=== PATIENT | male | born 1950 | race Caucasian/White ===

== ENCOUNTER → 2024-01-21 | Outpatient (CLI) | payer OTHER ==
--- NOTE | 2024-01-24 12:27 | PE ---
EXAMINATION TYPE: PET CT fusion skull to thigh DATE OF EXAM: 01/21/2024 CLINICAL INDICATION:Male, 73 years old with history of [id number]; TECHNIQUE: Following the intravenous administration of 12.8 mCi of F-18 FDG, whole body images are performed from the skull base to the midthigh. Images are reviewed on the computer in the coronal, a xial, and sagittal planes. Reconstructed rotating images are created on independent workstation and reviewed on the computer. A non-contrast CT is performed in conjunction with the PET scan. Glucose level 83 mg/dL CT DLP: 736 mGycm, Automated exposure control for dose reduction was used. COMPARISON: CT None, PET/CT None, FINDINGS: Mediastinal SUV mean is 2.7. Hepatic parenchyma SUV mean is 2.2. SKULL BASE AND NECK: * No suspicious radiotracer activity. * Physiologic uptake within the palatine tonsils. CHEST, MEDIASTINUM, AND HILAR REGION: * Right pulmonary hilum lymph node max SUV 4.8. * Asymmetric uptake within the left breast is retroareolar region in the area of gynecomastia SUV 4. 1. ABDOMEN AND PELVIS: No suspicious radiotracer activity. MUSCULOSKELETAL STRUCTURES: * No suspicious radiotracer activity. * Degeneration changes within the cervical spine lateral facets max SUV 6.0 C6-C7 on the left. OTHER CT: Bilaterally aphakia. Atherosclerosis of the carotid bifurcations and coronary arteries. Rig ht chest wall Hoegke-y-Epcn tip terminating in the right atrium. Atrophic kidneys right greater left. Scattered cysts throughout the liver. Colonic diverticulosis. Left inguinal hernia containing loop o f sigmoid colon. No evidence for circulation. Right renal cyst. Small bilateral hydroceles. IMPRESSION: * Right pulmonary hilum lymph node with mild uptake which may be reactive. No additional suspicious uptake definitively visualized to suggest active lymphoma. No priors are available for comparison. * Indeterminate Asymmetric uptake within the left breast correlate with mammography/ultrasound. This is predominantly in the retroareolar region where there is gynecomastia changes.
== END | disposition home or self-care (01) ==
LOC: RADPETMAIN 10:44
PROVIDERS: ATTEND Internal Medicine
DX: C82.98 Follicular lymphoma, unspecified, lymph nodes of multiple sites (principal); N62 Hypertrophy of breast
CPT/HCPCS: 78815; A9552

== ENCOUNTER → 2024-08-08 | Day surgery (SDC) | payer OTHER ==
[2024-08-08] MEDS: IV FLUID CONTINUATION 1,000 ML IV ONE (11:45)
[2024-08-08 12:16] VITALS: RESP 16; TEMP 97.1
[2024-08-08] MEDS: LIDOCAINE 1% INJ 10MG/ML (20 ML MDV) SQ ONE (12:30)
[2024-08-08 12:33] LABS: African American GFR (CKD) 6 (>60 ml/min/1.73 sqM); Anion Gap 17 mmol/L; Blood Urea Nitrogen 77 mg/dL (9-20); Calcium 9.1 mg/dL (8.4-10.2); Carbon Dioxide 24 mmol/L (22-30); Chloride 95 mmol/L (98-107); Glucose 86 mg/dL (74-99); Non-African American GFR(CKD) 6 (>60 ml/min/1.73 sqM); Sodium 136 mmol/L (137-145)
[2024-08-08] MEDS: MIDAZOLAM 2 MG/2 ML VIAL IVP ONE (12:38)
[2024-08-08] MEDS: HEPARIN SODIUM 1,000 UN/ML (10ML VL) IVP ONE (12:38)
[2024-08-08] MEDS: NITROGLYCERIN 1000MCG/10ML SYRINGE INTRAARTER ONE (12:39)
[2024-08-08] MEDS: VERAPAMIL SYRINGE (5 MG/10 ML) INTRAARTER ONE (12:39)
[2024-08-08 12:43] LABS: Anisocytosis Slight; Basophils % (A) 1 %; Eosinophils # (A) 0.2 k/uL (0-0.7); Eosinophils % (A) 3 %; HCT 46.1 % (39.0-53.0); HGB 15.2 gm/dL (13.0-17.5); Lymphocytes # (A) 1.2 k/uL (1.0-4.8); Lymphocytes % (A) 20 %; MCH 31.7 pg (25.0-35.0); MCHC 32.9 g/dL (31.0-37.0); MCV 96.2 fL (80.0-100.0); Mean Platelet Volume 8.8; Monocytes # (A) 0.5 k/uL (0-1.0); Monocytes % (A) 9 %; Neutrophils # (A) 3.7 k/uL (1.3-7.7); Neutrophils % (A) 63 %; Platelet Count 177 k/uL (150-450); RBC 4.79 m/uL (4.30-5.90); RDW 16.1 % (11.5-15.5); WBC 5.9 k/uL (3.8-10.6)
[2024-08-08] MEDS: IOPAMIDOL-370 100ML BTL INJ ONE (13:20)
--- NOTE | 2024-08-08 13:31 | P.OP ---
Date of Procedure: 08/08/24 Preoperative Diagnosis: End-stage renal disease, malfunctioning right upper extremity arteriovenous fistula Postoperative Diagnosis: Same Procedure(s) Performed: Ultrasound-guided right radial artery access Ultrasound-guided right brachial vein access Right upper extremity fistulogram Coil embolization of the right medial brachial vein with Terumo coils x 4 Conscious sedation x 51 mins Anesthesia: local Surgeon: Thomas Hernandez Estimated Blood Loss (ml): 5 Pathology: none sent Condition: stable Disposition: PACU Indications for Procedure: 73-year-old gentleman with history of end-stage renal disease on hemodialysis via right-sided chest catheter who underwent previous percutaneous arteriovenous fistula creation radial radial access several months ago and the fistula has failed to mature at the cephalic and basilic veins due to stealing within the deep system. He presents today to coil embolize the medial brachial vein to see if this will help improve blood flow through the cephalic and basilic veins and mature his fistula. Description of Procedure: After written and informed consent was obtained for the patient and all risk, benefits and complications were described the patient was brought to the [employer] [facility] and laid in the supine position with his right arm outstretched on an armboard. The area of the right arm was prepped and draped in usual sterile fashion. Timeout was performed normal fashion. Utilizing ultrasound the right radial artery was visualized and shown to be patent. It was then accessed under direct visualization in a retrograde fashion and a 5 Palauan sheath was placed in normal fashion. Fistulogram was then obtained demonstrating good brisk flow through his percutaneous fistula with out any evidence of stenosis at the cephalic vein or the shake backboard notcher. The medial brachial vein was large and therefore the brachial vein was then accessed in a retrograde fashion at the medial aspect of the arm under ultrasound guidance in normal fashion. A 5 Palauan sheath was then placed and a wire was then directed into the medial brachial vein. Angled glide catheter was then placed and utilizing Terumo coils 4 coils were then placed and direct visualization of fluoroscopy. 8 x 24 Azur CX x 2 followed by 4 x 10 and 4 x 15 cm Ware coils. Final angiogram was obtained demonstrating embolization of the medial brachial vein with brisk flow to the basilic and cephalic veins and good flow through the fistula. All guidewires and catheters were then removed. The sheath was removed at the brachial vein and hemostasis was assured with pressure. The arterial access was removed and a TR band was placed for hemostasis. The patient tolerated procedure well and had a palpable thrill at the fistula site.
[2024-08-08 17:49] VITALS: BP 129/64; PULSE 64
--- NOTE | 2024-08-12 11:17 | IR ---
EXAMINATION TYPE: IR fistula/abscess/sinus tract DATE OF EXAM: 08/08/2024 FLUOROSCOPY coil placement in right arm fistula.7.3min fluoro, 17.5Gycm2 609 images are submitted. [facility], , 08/11/2024 9:00 AM
== END ==
LOC: CATHCVL 11:03
PROVIDERS: ATTEND Surgery
DX: I77.0 Arteriovenous fistula, acquired (principal); N18.6 End stage renal disease; Z88.2 Allergy status to sulfonamides; Z88.1 Allergy status to other antibiotic agents; Z91.040 Latex allergy status
CPT/HCPCS: 76937; 36901; 37241; 80048; 85025; C1894 ×3; C1769 ×4; J2250; J2003; J1644; Q9967; J2305

== ENCOUNTER 2024-12-12 16:14 | Emergency (ER) | payer OTHER ==
[2024-12-12 16:32] VITALS: TEMP 97.8
--- NOTE | 2024-12-12 17:30 | ED ---
General Adult HPI - General Chief complaint: Recheck/Abnormal Lab/Rx Stated complaint: Port Issues Time Seen by Provider: 12/12/24 16:58 Source: patient Mode of arrival: ambulatory Limitations: no limitations - History of Present Illness Initial comments: Carloz is a 74-year-old gentleman with end-stage renal disease on hemodialysis Thursday. Patient has historically received his hemodialysis through a cath in the right chest, he had a fistula surgery about a year ago the fistula failed to mature due to deep steal, patient underwent coiling in July and the graft has had 5 more months to mature. He had his first vascular access for dialysis on Thursday. It was noted that it infiltrated on Thursday. Today they again attempted hemodialysis through the fistula they were successful for about 2 hours and again it infiltrated. They then attempted to access his cath in his right chest and could not gain access through that. He w as given Cathflo but they were still unsuccessful in completing dialysis at which time he was advised to come here. Patient does note that his weight was up today and they did not complete dialysis but he is feeling well, no shortness of breath or chest pain. - Related Data Home Medications Medication Instructions Recorded Confirmed B Complex W-C No.20/Folic Acid 1 mg PO DAILY 08/05/24 08/08/24 [Renal Caps Softgel] Calcium Carbonate [Calcium] 1 tab PO PC-TID 08/05/24 08/08/24 Cholecalciferol [Vitamin D3 (10 10 mcg PO BID 08/05/24 08/08/24 Mcg = 400 Iu)] Furosemide [Lasix] 40 mg PO DAILY 08/05/24 08/08/24 Lovastatin [Mevacor] 20 mg PO HS 08/05/24 08/08/24 Memantine [Namenda] 5 mg PO DAILY 08/05/24 08/08/24 Midodrine [ProAmatine] 5 mg PO MOWEFR 08/05/24 08/08/24 Thiamine [Vitamin B-1] 100 mg PO DAILY 08/05/24 08/08/24 traMADol HCL 100 mg PO TID PRN 08/05/24 08/08/24 amLODIPine [Norvasc] 0 mg PO DAILY 08/08/24 08/08/24 Allergies Allergy/AdvReac Type Severity Reaction Status Date / Time latex Allergy Rash/Hives Verified 12/12/24 16:32 levofloxacin Allergy Rash/Hives Verified 12/12/24 16:32 Sulfa (Sulfonamide Allergy Rash/Hives Verified 12/12/24 16:32 Antibiotics) aspirin AdvReac renal Verified 12/12/24 16:32 failure NSAIDS (Non-Steroidal AdvReac renal Verified 12/12/24 16:32 Anti-Inflamma failure Review of Systems ROS Statement: Those systems with pertinent positive or pertinent negative responses have been documented in the HPI. ROS Other: All systems not noted in ROS Statement are negative. Past Medical History Past Medical History: Dialysis, Hyperlipidemia, Hypertension, Memory Impairment, Renal Disease Additional Past Medical History / Comment(s): bleeding ulcer , ESRD - hemodialysis 3x/wk, pituitary gland tumor - removed 2015, Non hodgkin's lymphoma from [facility] [place] History of Any Multi-Drug Resistant Organisms: None Reported Additional Past Surgical History / Comment(s): pituitary gland tumor removal 2015, partial Lt. knee replacement, Rt. brachial fistula insertion Past Anesthesia/Blood Transfusion Reactions: No Reported Reaction Past Psychological History: No Psychological Hx Reported Smoking Status: Former smoker - Past Family History Father Family Medical History: Renal Disease General Exam - General Exam Comments Initial Comments: Physical Exam GENERAL: Chronically ill-appearing, no acute distress HENT: Normocephalic, Atraumatic. EYES: PERRL, EOMI PULMONARY: Unlabored respirations. CARDIOVASCULAR: Fistula in right arm, palpable thrill, slight oozing of blood from access site Cath in the right upper chest ABDOMEN: Non-distended SKIN: No rashes or bruising : Deferred NEUROLOGIC: Alert and oriented Normal speech MUSCULOSKELETAL: Moving all extremities with no apparent injury PSYCHIATRIC: No SI/HI Limitations: no limitations Course Vital Signs 12/12/24 12/12/24 16:26 19:09 Temperature 97.8 F Pulse Rate 81 85 Respiratory 17 18 Rate Blood Pressure 157/71 142/73 O2 Sat by Pulse 100 96 Oximetry Medical Decision Making - Medical Decision Making Was pt. sent in by a medical professional or institution (, PA, EVS ATTENDANT, urgent care, hospital, or long-term...) When possible be specific @ -Yes, sent from dialysis center Did you speak to anyone other than the patient for history (EMS, parent, family, police, friend...)? What history was obtained from this source @ -Yes, Did you review nursing and triage notes (agree or disagree)? Why? @ -I reviewed and agree with nursing and triage notes Were old charts reviewed (outside hosp., previous admission, EMS record, old EKG, old radiological studies, urgent care reports/EKG's, long-term records)? Report findings @ -Previous vascular op notes were reviewed Differential Diagnosis (chest pain, altered mental status, abdominal pain women, abdominal pain men, vaginal bleeding, weakness, fever, dyspnea, syncope, headache, dizziness, GI bleed, back pain, seizure, CVA, palpatations, mental health)? @ -Not applicable EKG interpreted by me (3pts min.). @ -As above X-rays interpreted by me (1pt min.). @ -None done CT interpreted by me (1pt min.). @ -None done U/S interpreted by me (1pt. min.). @ -None done What testing was considered but not performed or refused? (CT, X-rays, U/S, labs)? Why? @ -None What meds were considered but not given or refused? Why? @ -None Did you discuss the management of the patient with other professionals (professionals i.e. Dr., PA, EVS ATTENDANT, lab, RT, psych nurse, social security benefits interviewer, infection control preventionist, teacher, patient safety officer, shoe caser)? Give summary @ -Discussed with vascular surgeon Dr. Fernández Was smoking cessation discussed for >3mins.? @ -No Was critical care preformed (if so, how long)? @ -No Were there social determinants of health that impacted care today? How? (Homelessness, low income, unemployed, alcoholism, drug addiction, transportation, low edu. Level, literacy, decrease access to med. care, shelter, rehab)? @ -No Was there de-escalation of care discussed even if they declined (Discuss DNR or withdrawal of care, Hospice)? DNR status @ -No What co-morbidities impacted this encounter? (DM, HTN, Smoking, COPD, CAD, Cancer, CVA, ARF, Chemo, Hep., AIDS, mental health diagnosis, sleep apnea, morbid obesity)? @ -End-stage renal disease on dialysis Was patient admitted / discharged? Hospital course, mention meds given and route, prescriptions, significant lab abnormalities, going to OR and other pertinent info. @ -Discharged The patient was seen and evaluated, history is obtained from the patient and note from dialysis center. Patient's right AV fistula infiltrated 2 sessions in a row and today they were unable to perform dialysis through his cath despite using Cathflo. I discussed this with the vascular surgeon on-call who recommended giving Cathflo again. We gave a second dose of Cathflo and had easy access through the cath afterwards. This was discussed with the patient's guest services ambassador who stated that now that we have good flow through the cath patient can be discharged home with a plan for urgent 2-hour dialysis tomorrow and return to normal schedule on Thursday. In addition patient will follow-up with vascular surgeon for reevaluation of his fistula. Undiagnosed new problem with uncertain prognosis? @ -No Drug Therapy requiring intensive monitoring for toxicity (Heparin, Nitro, Insulin, Cardizem)? @ -No Were any procedures done? @ -No Diagnosis/symptom? @ -End-stage renal disease patient on with vascular access problem Acute, or Chronic, or Acute on Chronic? @ -Default Uncomplicated (without systemic symptoms) or Complicated (systemic symptoms)? @ -Default Side effects of treatment? @ -No Exacerbation, Progression, or Severe Exacerbation? @ -No Poses a threat to life or bodily function? How? (Chest pain, USA, CT, pneumonia, PE, COPD, DKA, ARF, appy, cholecystitis, CVA, Diverticulitis, Homicidal, Anita cidal, threat to staff... and all critical care pts) @ -No - Lab Data Result diagrams: 12/12/24 17:34 12/12/24 17:34 Lab Results 12/12/24 12/12/24 Range/Units 17:34 17:34 WBC 9.19 (4.50-10.00) 10*3/uL RBC 3.53 L (4.40-5.60) 10*6/uL Hgb 11.0 L (13.0-17.0) g/dL Hct 32.3 L (39.6-50.0) % MCV 91.5 (80.0-97.0) fL MCH 31.2 (27.0-32.0) pg MCHC 34.1 (32.0-37.0) g/dL Plt Count 252 (140-440) 10*3/uL MPV 10.0 (9.5-12.2) fL Immature Gran % (Auto) 0.3 % Neutrophils % 80.1 % Lymphocytes % 6.0 % Monocytes % 11.9 % Eosinophils % 1.3 % Basophils % 0.4 % Immature Gran # 0.03 (0.00-0.04) 10*3/uL Neutrophils # 7.36 (1.80-7.70) 10*3/uL Lymphocytes # 0.55 L (0.90-5.00) 10*3/uL Monocytes # 1.09 H (0.20-1.00) 10*3/uL Eosinophils # 0.12 (0.04-0.35) 10*3/uL Basophils # 0.04 (0.00-0.10) 10*3/uL Sodium 138 (137-145) mmol/L Potassium 5.1 (3.5-5.1) mmol/L Chloride 98 (98-107) mmol/L Carbon Dioxide 26 (22-30) mmol/L Anion Gap 14 mmol/L BUN 106 H* (9-20) mg/dL Creatinine 8.36 H* (0.66-1.25) mg/dL Est GFR (CKD-EPI)AfAm 7 (>60 ml/min/1.73 sqM) Est GFR (CKD-EPI)NonAf 6 (>60 ml/min/1.73 sqM) Glucose 107 H (74-99) mg/dL Calcium 8.5 (8.4-10.2) mg/dL Phosphorus 6.4 H (2.5-4.5) mg/dL Total Bilirubin 0.7 (0.2-1.3) mg/dL AST 44 (17-59) U/L ALT 59 H (4-49) U/L Alkaline Phosphatase 177 H (38-126) U/L Total Protein 7.1 (6.3-8.2) g/dL Albumin 3.5 (3.5-5.0) g/dL Disposition Clinical Impression: Dialysis catheter clot or failure Disposition: HOME SELF-CARE Condition: Stable Additional Instructions: Dr. Prajapati will be reaching out to see if they can get you scheduled for an emergent 2-hour dialysis session tomorrow if not you will resume dialysis on Thursday Is patient prescribed a controlled substance at d/c from ED?: No Referrals: Keith Kowalski DO [Primary Care Provider] - 1-2 days
[2024-12-12 17:40] LABS: Basophils # (A) 0.04 10*3/uL (0.00-0.10); Basophils % (A) 0.4 %; Eosinophils # (A) 0.12 10*3/uL (0.04-0.35); Eosinophils % (A) 1.3 %; HCT 32.3 % (39.6-50.0); Lymphocytes # (A) 0.55 10*3/uL (0.90-5.00); MCH 31.2 pg (27.0-32.0); MCHC 34.1 g/dL (32.0-37.0); MCV 91.5 fL (80.0-97.0); Monocytes # (A) 1.09 10*3/uL (0.20-1.00); Monocytes % (A) 11.9 %; Neutrophils # (A) 7.36 10*3/uL (1.80-7.70); Neutrophils % (A) 80.1 %; Platelet Count 252 10*3/uL (140-440); RBC 3.53 10*6/uL (4.40-5.60); RDW 16.8 % (11.5-14.5); WBC 9.19 10*3/uL (4.50-10.00)
[2024-12-12 17:52] LABS: ALT 59 U/L (4-49); AST 44 U/L (17-59); African American GFR (CKD) 7 (>60 ml/min/1.73 sqM); Albumin 3.5 g/dL (3.5-5.0); Alkaline Phosphatase 177 U/L (38-126); Anion Gap 14 mmol/L; Calcium 8.5 mg/dL (8.4-10.2); Carbon Dioxide 26 mmol/L (22-30); Chloride 98 mmol/L (98-107); Glucose 107 mg/dL (74-99); Non-African American GFR(CKD) 6 (>60 ml/min/1.73 sqM); Phosphorus 6.4 mg/dL (2.5-4.5); Potassium 5.1 mmol/L (3.5-5.1); Sodium 138 mmol/L (137-145); Total Bilirubin 0.7 mg/dL (0.2-1.3); Total Protein 7.1 g/dL (6.3-8.2)
[2024-12-12] MEDS: ALTEPLASE 2 MG VIAL (CATHFLO) IV STA (18:01)
[2024-12-12 18:03] LABS: Blood Urea Nitrogen 106 mg/dL (9-20)
[2024-12-12 19:10] VITALS: BP 142/73; PULSE 85; RESP 18
== END 2024-12-12 19:11 | disposition home or self-care (01) ==
LOC: EC 16:14
DX: T82.41XA Breakdown (mechanical) of vascular dialysis catheter, initial encounter (principal); N18.6 End stage renal disease; Z99.2 Dependence on renal dialysis; Z87.891 Personal history of nicotine dependence; Z88.2 Allergy status to sulfonamides; Z88.1 Allergy status to other antibiotic agents; Z88.6 Allergy status to analgesic agent; Z91.040 Latex allergy status
CPT/HCPCS: 36415; 80053; 84100; 85025; 99283; 37195; J2997

== ENCOUNTER → 2025-02-02 | Outpatient (CLI) | payer OTHER ==
--- NOTE | 2025-02-02 10:32 | US ---
EXAMINATION TYPE: US arterial LE single level DATE OF EXAM: 02/02/2025 9:21 AM COMPARISONS: None. CLINICAL INDICATION: Male, 74 years old with history of M86.172 OTHER ACUTE OSTEOMYELITIS ,LEFT ANKLE AND; TECHNIQUE: Systolic pressures were taken of the upper and lower extremity arteries with ankle-brachia l indices and toe brachial indices calculated bilaterally. History of: Smoker: Previous Hypertension: Yes Diabetic: No Hyperlipidemia: Yes TIA/CVA: No Previous Vascular Surgery: Patient has hx of procedure on veins in legs CAD: No UT: No Vascular Ulcers: Patient has 2 wounds on left foot - lateral and bottom of foot Claudication: No FINDINGS: Doppler Waveforms: Right: Left: Pulse Volume Recording: Pressure Gradients: Brachial Artery systolic pressure: Right: Deferred due to fistula Left: 106 Posterior Tibial artery systolic pressure: Right: 108 Left: 115 Dorsalis Pedis artery systolic pressure: Right: 116 Left: 112 Toe artery systolic pressure: Right: 98 Left: Unable to access due to bandage Ankle-Brachial Indices: Right: 1.09 Left: 1.08 Toe Brachial Indices: Right: 0.92 Left: Unable to access due to bandage (Normal > 0.6; Mild 0.35 - 0.59, Moderate 0.12 - 0.34, Severe <0.12) IMPRESSION: 1. No suspicious stenosis based arterial ultrasound study. 2. Limitation of left lower extremity due to bandaging [facility], , 02/02/2025 10:29 AM
== END | disposition home or self-care (01) ==
LOC: RADUSWWP 08:40
PROVIDERS: ATTEND Internal Medicine Infectious Disease
DX: M86.172 Other acute osteomyelitis, left ankle and foot (principal); E78.5 Hyperlipidemia, unspecified; I10 Essential (primary) hypertension; Z87.891 Personal history of nicotine dependence
CPT/HCPCS: 93922

== ENCOUNTER 2025-02-04 11:45 | Inpatient (IN) | payer OTHER, MEDICARE ==
[2025-02-04] MEDS: SODIUM CHLORIDE 0.9% 1,000 ML IV STA (14:11)
[2025-02-04 14:19] LABS: Basophils # (A) 0.13 10*3/uL (0.00-0.10); Basophils % (A) 0.5 %; Eosinophils # (A) 0.06 10*3/uL (0.04-0.35); Eosinophils % (A) 0.2 %; HCT 35.7 % (39.6-50.0); HGB 12.1 g/dL (13.0-17.0); Immature Platelet Fraction 4.1 % (1.1-6.1); Lymphocytes # (A) 0.72 10*3/uL (0.90-5.00); Lymphocytes % (A) 2.6 %; MCH 32.0 pg (27.0-32.0); MCHC 33.9 g/dL (32.0-37.0); MCV 94.4 fL (80.0-97.0); Monocytes # (A) 1.94 10*3/uL (0.20-1.00); Monocytes % (A) 7.1 %; Neutrophils # (A) 24.15 10*3/uL (1.80-7.70); Neutrophils % (A) 88.6 %; RBC 3.78 10*6/uL (4.40-5.60); RDW 17.5 % (11.5-14.5); WBC 27.28 10*3/uL (4.50-10.00)
[2025-02-04 14:21] LABS: Platelet Count 155 10*3/uL (140-440)
[2025-02-04 14:27] LABS: ALT <6 U/L (4-49); AST 34 U/L (17-59); African American GFR (CKD) 11 (>60 ml/min/1.73 sqM); Albumin 2.8 g/dL (3.5-5.0); Alkaline Phosphatase 134 U/L (38-126); Anion Gap 12 mmol/L; Blood Urea Nitrogen 45 mg/dL (9-20); Calcium 8.2 mg/dL (8.4-10.2); Carbon Dioxide 25 mmol/L (22-30); Chloride 96 mmol/L (98-107); Glucose 92 mg/dL (74-99); Non-African American GFR(CKD) 9 (>60 ml/min/1.73 sqM); Potassium 3.4 mmol/L (3.5-5.1); Sodium 133 mmol/L (137-145); Total Protein 5.5 g/dL (6.3-8.2)
--- NOTE | 2025-02-04 15:39 | ED ---
General Adult HPI - General Chief complaint: Nausea/Vomiting/Diarrhea Stated complaint: diarrhea Time Seen by Provider: 02/04/25 12:05 Source: patient Mode of arrival: ambulatory Limitations: no limitations - History of Present Illness Initial comments: 74-year-old male with history of osteomyelitis on IV antibiotics who presents to the emergency department for diarrhea. Patient is a dialysis patient. He receives dialysis on Thursday, Thursday and Thursday. He states that at each dialysis appointment he has been getting an infusion of antibiotics for the infection in his foot. He follows with Dr. Cespedes. He states that he goes multiple times per hour and it is bright yellow in coloration. He has no abdominal pain. He did bring a stool sample to the hospital yesterday and was found that he is C. difficile positive. Patient was prescribed Flagyl 1 month ago however he states that the [facility] never delivered this to him. No vomiting. No other alleviating, precipitating or modifying factors - Related Data Home Medications Medication Instructions Recorded Confirmed B Complex W-C No.20/Folic Acid 1 cap PO DAILY 08/05/24 02/08/25 [Renal Caps Softgel] Cholecalciferol [Vitamin D3 (10 10 mcg PO BID 08/05/24 02/08/25 Mcg = 400 Iu)] Furosemide [Lasix] 80 mg PO DAILY 08/05/24 02/08/25 Lovastatin [Mevacor] 20 mg PO HS 08/05/24 02/08/25 traMADol HCL 100 mg PO BID 08/05/24 02/08/25 Memantine [Namenda] 5 mg PO BID 12/22/24 02/08/25 Midodrine HCl 10 mg PO MOWEFR 12/22/24 02/08/25 Sucroferric Oxyhydroxide [Velphoro] 500 mg PO TID-W/MEALS 12/22/24 02/08/25 amLODIPine [Norvasc] 10 mg PO DAILY 12/22/24 02/08/25 carvediloL [Coreg] 3.125 mg PO BID 12/22/24 02/08/25 Thiamine HCl [Vitamin B-1] 200 mg PO DAILY 02/04/25 02/08/25 Vancomycin Oral Solution 500 mg PO DIRECTED 02/08/25 02/08/25 [Vancomycin HCl Oral Soln] Previous Rx's Medication Instructions Recorded Calcium Acetate [PhosLo] 667 mg PO TID-W/MEALS #30 tab 12/28/24 Allergies Allergy/AdvReac Type Severity Reaction Status Date / Time latex Allergy Rash/Hives Verified 02/08/25 20:51 levofloxacin Allergy Rash/Hives Verified 02/08/25 20:51 Sulfa (Sulfonamide Allergy Rash/Hives Verified 02/08/25 20:51 Antibiotics) aspirin AdvReac renal Verified 02/08/25 20:51 failure NSAIDS (Non-Steroidal AdvReac renal Verified 02/08/25 20:51 Anti-Inflamma failure Review of Systems ROS Statement: Those systems with pertinent positive or pertinent negative responses have been documented in the HPI. ROS Other: All systems not noted in ROS Statement are negative. Past Medical History Past Medical History: Dialysis, Hyperlipidemia, Hypertension, Memory Impairment, Renal Disease Additional Past Medical History / Comment(s): bleeding ulcer , ESRD - hemodialysis 3x/wk, pituitary gland tumor - removed 2015, Non hodgkin's lymphoma from [employer] [place] History of Any Multi-Drug Resistant Organisms: None Reported Additional Past Surgical History / Comment(s): pituitary gland tumor removal 2015, partial Lt. knee replacement, Rt. brachial fistula insertion Past Anesthesia/Blood Transfusion Reactions: No Reported Reaction Past Psychological History: No Psychological Hx Reported Smoking Status: Former smoker Past Alcohol Use History: None Reported Past Drug Use History: None Reported - Past Family History Father Family Medical History: Renal Disease General Exam Limitations: no limitations General appearance: alert, in no apparent distress Head exam: Present: atraumatic, normocephalic, normal inspection Eye exam: Present: normal appearance, PERRL, EOMI. Absent: scleral icterus, conjunctival injection, periorbital swelling ENT exam: Present: normal exam, mucous membranes moist Neck exam: Present: normal inspection. Absent: tenderness, meningismus, lymphadenopathy Respiratory exam: Present: normal lung sounds bilaterally. Absent: respiratory distress, wheezes, rales, rhonchi, stridor Cardiovascular Exam: Present: regular rate, normal rhythm, normal heart sounds. Absent: systolic murmur, diastolic murmur, rubs, gallop, clicks GI/Abdominal exam: Present: soft, normal bowel sounds. Absent: distended, tenderness, guarding, rebound, rigid Extremities exam: Present: normal inspection, full ROM, normal capillary refill. Absent: tenderness, pedal edema, joint swelling, calf tenderness Back exam: Present: normal inspection Neurological exam: Present: alert, oriented X3, CN II-XII intact Psychiatric exam: Present: normal affect, normal mood Skin exam: Present: warm, dry, intact, normal color. Absent: rash Course Vital Signs 02/04/25 02/04/25 02/04/25 11:47 15:14 17:46 Temperature 97.7 F 97.9 F Pulse Rate 64 75 68 Respiratory 18 16 19 Rate Blood Pressure 92/44 96/62 94/60 O2 Sat by Pulse 94 L 95 96 Oximetry Medical Decision Making - Medical Decision Making Was pt. sent in by a medical professional or institution (, PA, RETREAD OPERATOR, urgent care, hospital, or [facility]...) When possible be specific @ -Patient was sent in by his primary care after he did have positive outpatient laboratory studies Did you speak to anyone other than the patient for history (EMS, parent, family, police, friend...)? What history was obtained from this source @ -Spoke with for history Did you review nursing and triage notes (agree or disagree)? Why? @ -I reviewed and agree with nursing and triage notes Were old charts reviewed (outside hosp., previous admission, EMS record, old EKG, old radiological studies, urgent care reports/EKG's, [facility] records)? Report findings @ -I reviewed patient's hospitalization from December 22. Patient was hospitalized for osteomyelitis and was on antibiotics. He was discharged home with Flagyl however [facility] Differential Diagnosis (chest pain, altered mental status, abdominal pain women, abdominal pain men, vaginal bleeding, weakness, fever, dyspnea, syncope, headache, dizziness, GI bleed, back pain, seizure, CVA, palpatations, mental health, musculoskeletal)? @Differential Abdominal Pain Men: Appendicitis, cholecystitis, diverticulosis, ischemic bowel, pancreatitis, hepatitis, UTI, gastroenteritis, AAA, incarcerated hernia, bowel obstruction, constipation, inflammatory bowel, hepatitis, peptic ulcer disease, splenic infarction, perforated viscus, testicular torsion, this is not meant to be an all-inclusive list EKG interpreted by me (3pts min.). @ -Not done X-rays interpreted by me (1pt min.). @ -Yes which does not demonstrate any acute process CT interpreted by me (1pt min.). @ -None done U/S interpreted by me (1pt. min.). @ -None done What testing was considered but not performed or refused? (CT, X-rays, U/S, labs)? Why? @ -None What meds were considered but not given or refused? Why? @ -None Did you discuss the management of the patient with other professionals (professionals i.e. Dr., PA, RETREAD OPERATOR, lab, RT, psych nurse, social services, sterilization specialist, teacher, financial services officer, test case developer)? Give summary @ -Spoke with Dr. Muller for admission Was smoking cessation discussed for >3mins.? @ -No Was critical care preformed (if so, how long)? @ -No Were there social determinants of health that impacted care today? How? (Ho melessness, low income, unemployed, alcoholism, drug addiction, transportation, low edu. Level, literacy, decrease access to med. care, half-way, rehab)? @ -No Was there de-escalation of care discussed even if they declined (Discuss DNR or withdrawal of care, Hospice)? DNR status @ -No What co-morbidities impacted this encounter? (DM, HTN, Smoking, COPD, CAD, Cancer, CVA, ARF, Chemo, Hep., AIDS, mental health diagnosis, sleep apnea, morbid obesity)? @ -Osteomyelitis Was patient admitted / discharged? Hospital course, mention meds given and route, prescriptions, significant lab abnormalities, going to OR and other pertinent info. @ -On arrival patient seen and evaluated in room 22. Thorough history and physical exam was performed. Patient is C. difficile positive on his outpatient labs. I did initiate oral Vanco. He does arrive with hypotension and therefore I did conduct laboratory studies. Patient does have leukocytosis. I did recommend admission because of the hypotension and leukocytosis. Spoke with Dr. Muller for admission Undiagnosed new problem with uncertain prognosis? @ -No Drug Therapy requiring intensive monitoring for toxicity (Heparin, Nitro, Insulin, Cardizem)? @ -No Were any procedures done? @ -No Diagnosis/symptom? @ -Acute abdominal pain, acute diarrhea, C. difficile, hypotension, leukocytosis Acute, or Chronic, or Acute on Chronic? @ -Acute Uncomplicated (without systemic symptoms) or Complicated (systemic symptoms)? @ -Complicated Side effects of treatment? @ -No Exacerbation, Progression, or Severe Exacerbation? @ -No Poses a threat to life or bodily function? How? (Chest pain, USA, NM, pneumonia, PE, COPD, DKA, ARF, appy, cholecystitis, CVA, Diverticulitis, Homicidal, Suicidal, threat to staff... and all critical care pts) @ -No - Lab Data Result diagrams: 02/07/25 09:12 02/07/25 09:12 Lab Results 02/04/25 02/04/25 02/04/25 Range/Units 14:07 14:07 14:07 WBC 27.28 H (4.50-10.00) 10*3/uL RBC 3.78 L (4.40-5.60) 10*6/uL Hgb 12.1 L (13.0-17.0) g/dL Hct 35.7 L (39.6-50.0) % MCV 94.4 (80.0-97.0) fL MCH 32.0 (27.0-32.0) pg MCHC 33.9 (32.0-37.0) g/dL Plt Count 155 D (140-440) 10*3/uL MPV 10.3 (9.5-12.2) fL Immature Gran % (Auto) 1.0 % Neutrophils % 88.6 % Lymphocytes % 2.6 % Monocytes % 7.1 % Eosinophils % 0.2 % Basophils % 0.5 % Immature Gran # 0.28 H (0.00-0.04) 10*3/uL Neutrophils # 24.15 H (1.80-7.70) 10*3/uL Lymphocytes # 0.72 L (0.90-5.00) 10*3/uL Monocytes # 1.94 H (0.20-1.00) 10*3/uL Eosinophils # 0.06 (0.04-0.35) 10*3/uL Basophils # 0.13 H (0.00-0.10) 10*3/uL Differential Comment P Manual Slide Review Performed Immature Plt Fraction 4.1 (1.1-6.1) % Sodium 133 L (137-145) mmol/L Potassium 3.4 L (3.5-5.1) mmol/L Chloride 96 L (98-107) mmol/L Carbon Dioxide 25 (22-30) mmol/L Anion Gap 12 mmol/L BUN 45 H (9-20) mg/dL Creatinine 5.55 H (0.66-1.25) mg/dL Est GFR (CKD-EPI)AfAm 11 (>60 ml/min/1.73 sqM) Est GFR (CKD-EPI)NonAf 9 (>60 ml/min/1.73 sqM) Glucose 92 (74-99) mg/dL Plasma Lactic Acid Sami 1.1 (0.7-2.0) mmol/L Calcium 8.2 L (8.4-10.2) mg/dL Total Bilirubin 0.5 (0.2-1.3) mg/dL AST 34 (17-59) U/L ALT <6 (4-49) U/L Alkaline Phosphatase 134 H (38-126) U/L Total Protein 5.5 L (6.3-8.2) g/dL Albumin 2.8 L (3.5-5.0) g/dL Disposition Clinical Impression: C. difficile diarrhea, Leukocytosis Disposition: ADMITTED IP TO THIS [facility] Condition: Stable Is patient prescribed a controlled substance at d/c from ED?: No Time of Disposition: 16:36 Decision to Admit Reason: Admit from EC Decision Date: 02/04/25 Decision Time: 16:36
[2025-02-04] MEDS ORDERED: NALOXONE 0.4 MG/ML 1 ML VIAL IV PRN (16:36)
[2025-02-04] MEDS: SODIUM CHLORIDE 0.9% 1,000 ML IV SCH (18:00)
--- NOTE | 2025-02-04 18:36 | P.HPIM ---
History of Present Illness H&P Date: 02/04/25 Chief Complaint: Diarrhea 74-year-old male with medical history of type 2 diabetes, hypertension, hyperlipidemia, end-stage renal disease on dialysis, who has recently been on antibiotics for the past month for osteomyelitis with cefazolin presented for diarrhea. Patient says that for the last 1 week has been experiencing worsening diarrhea which is completely watery and now he has more than 6 completely watery bowel movements daily, nonbloody. These are associated with abdominal pain just prior to stooling. He denies fevers, chills, nausea, vomiting. He has had a poor appetite over the last week. In the emergency room, patient was afebrile, 92/44, heart rate 64, 94% on room air. CBC was remarkable for leukocytosis of 27.3, platelets of 155. Basic metabolic panel shows sodium 133, potassium 3.4, chloride 96, BUN of 45, creatinine of 5.55. Liver function test show elevated alkaline phosphatase, low albumin of 2.8. No images to review. All Systems reviewed and pertinent positives and negatives noted in HPI, all other symptoms are negative Gen: In NAD, non-toxic HEENT: normocephalic, atraumatic, hearing acuity is intant, mucous membranes moist CVS: perfusing all extremities well, no pitting edema, Respiratory: symmetric chest expansion, no accessory muscle use, GI: soft, diffusely tender to palpation, ND, : no suprapubic tenderness, no CVA tenderness MSK/Derm: no rashes, cyanosis Neuro: CN II-XII intact, no motor weakness, Psych: cooperative, euthymic mood, judgment and insight is intact Labs and imaging as above Assessment/plan: Severe sepsis C. difficile colitis Left foot osteomyelitis -Continue cefazolin for osteomyelitis - Start oral vancomycin 125 mg 4 times a day - Special contact precautions - IV fluids - Pain control: Tylenol as needed - ID consult Hypertension Hyperlipidemia Type 2 diabetes End-stage renal disease -Home medications reviewed and reconciled - Nephrology consulted Patient is full code DVT prophylaxis with heparin 3 times daily Past Medical History Past Medical History: Dialysis, Hyperlipidemia, Hypertension, Memory Impairment, Renal Disease Additional Past Medical History / Comment(s): bleeding ulcer , ESRD - hemodialysis 3x/wk, pituitary gland tumor - removed 2015, Non hodgkin's lymphoma from [employer] [place] History of Any Multi-Drug Resistant Organisms: None Reported Additional Past Surgical History / Comment(s): pituitary gland tumor removal 2016, partial Lt. knee replacement, Rt. brachial fistula insertion Past Anesthesia/Blood Transfusion Reactions: No Reported Reaction Past Psychological History: No Psychological Hx Reported Smoking Status: Former smoker Past Alcohol Use History: None Reported Past Drug Use History: None Reported - Past Family History Father Family Medical History: Renal Disease Medications and Allergies Home Medications Medication Instructions Recorded Confirmed Type B Complex W-C No.20/Folic Acid 1 cap PO DAILY 08/05/24 02/04/25 History [Renal Caps Softgel] Cholecalciferol [Vitamin D3 (10 10 mcg PO BID 08/05/24 02/04/25 History Mcg = 400 Iu)] Furosemide [Lasix] 80 mg PO DAILY 08/05/24 02/04/25 History Lovastatin [Mevacor] 20 mg PO HS 08/05/24 02/04/25 History traMADol HCL 100 mg PO BID 08/05/24 02/04/25 History Memantine [Namenda] 5 mg PO BID 12/22/24 02/04/25 History Midodrine HCl 10 mg PO MOWEFR 12/22/24 02/04/25 History Sucroferric Oxyhydroxide [Velphoro] 500 mg PO TID-W/MEALS 12/22/24 02/04/25 History amLODIPine [Norvasc] 10 mg PO DAILY 12/22/24 02/04/25 History carvediloL [Coreg] 3.125 mg PO BID 12/22/24 02/04/25 History Calcium Acetate [PhosLo] 667 mg PO TID-W/MEALS #30 tab 12/28/24 02/04/25 Rx Thiamine HCl [Vitamin B-1] 200 mg PO DAILY 02/04/25 02/04/25 History Allergies Allergy/AdvReac Type Severity Reaction Status Date / Time latex Allergy Rash/Hives Verified 02/04/25 17:24 levofloxacin Allergy Rash/Hives Verified 02/04/25 17:24 Sulfa (Sulfonamide Allergy Rash/Hives Verified 02/04/25 17:24 Antibiotics) aspirin AdvReac renal Verified 02/04/25 17:24 failure NSAIDS (Non-Steroidal AdvReac renal Verified 02/04/25 17:24 Anti-Inflamma failure Physical Exam Osteopathic Statement: *. No significant issues noted on an osteopathic structural exam other than those noted in the History and Physical/Consult. Vitals: Vital Signs Temp Pulse Resp BP Pulse Ox 02/04/25 17:46 97.9 F 68 19 94/60 96 02/04/25 15:14 75 16 96/62 95 02/04/25 11:47 97.7 F 64 18 92/44 94 L Intake and Output 02/04/25 02/04/25 02/04/25 06:59 14:59 22:59 Other: Weight 91.172 kg Results CBC & Chem 7: 02/04/25 14:07 02/04/25 14:07 Labs: Abnormal Lab Results - Last 24 Hours (Table) 02/04/25 02/04/25 Range/Units 14:07 14:07 WBC 27.28 H (4.50-10.00) 10*3/uL RBC 3.78 L (4.40-5.60) 10*6/uL Hgb 12.1 L (13.0-17.0) g/dL Hct 35.7 L (39.6-50.0) % Immature Gran # 0.28 H (0.00-0.04) 10*3/uL Neutrophils # 24.15 H (1.80-7.70) 10*3/uL Lymphocytes # 0.72 L (0.90-5.00) 10*3/uL Monocytes # 1.94 H (0.20-1.00) 10*3/uL Basophils # 0.13 H (0.00-0.10) 10*3/uL Sodium 133 L (137-145) mmol/L Potassium 3.4 L (3.5-5.1) mmol/L Chloride 96 L (98-107) mmol/L BUN 45 H (9-20) mg/dL Creatinine 5.55 H (0.66-1.25) mg/dL Calcium 8.2 L (8.4-10.2) mg/dL Alkaline Phosphatase 134 H (38-126) U/L Total Protein 5.5 L (6.3-8.2) g/dL Albumin 2.8 L (3.5-5.0) g/dL
[2025-02-04] MEDS: VANCOMYCIN 125 MG CAPSULE PO SCH (20:21)
--- NOTE | 2025-02-04 20:32 | XR ---
EXAMINATION TYPE: XR KUB DATE OF EXAM: 02/04/2025 COMPARISON: PET CT 01/21/2024 HISTORY: Diarrhea TECHNIQUE: Single supine KUB image of the abdomen is obtained FINDINGS: Small bowel demonstrates no evidence for dilatation or air fluid levels. Gas and fecal material is seen in non-distended colon. No convincing evidence for pneumoperitoneum. Vascular calcifications. The lung bases are clear. The osseous structures are intact. Levoscoliotic curvature of the lumbar spine. Multilevel degenerati ve disc disease. IMPRESSION: Overall nonobstructive bowel gas pattern. [facility], , 02/04/2025 8:30 PM
[2025-02-05 11:01] LABS: Basophils # (A) 0.03 X 10*3/uL (0.00-0.10); Basophils % (A) 0.1 %; Eosinophils # (A) 0.11 X 10*3/uL (0.04-0.35); Eosinophils % (A) 0.4 %; HCT 35.5 % (39.6-50.0); HGB 11.2 g/dL (13.0-17.0); Immature Grans, Automated 1.30 %; Lymphocytes # (A) 0.87 X 10*3/uL (0.90-5.00); Lymphocytes % (A) 2.9 %; MCH 31.3 pg (27.0-32.0); MCHC 31.5 g/dL (32.0-37.0); MCV 99.2 FL (80.0-97.0); Monocytes # (A) 2.23 X 10*3/uL (0.20-1.00); Monocytes % (A) 7.4 %; NRBC Per 100 WBC 0.02 X 10*3/uL (0.00-0.01); Neutrophils # (A) 26.55 X 10*3/uL (1.80-7.70); Neutrophils % (A) 87.9 %; Platelet Count 155 X 10*3/uL (140-440); RBC 3.58 X 10*6/uL (4.40-5.60); RDW 17.7 % (11.5-14.5); WBC 30.17 X 10*3/uL (4.50-10.00)
[2025-02-05] MEDS: amLODIPine 10 MG TAB PO SCH (11:42)
[2025-02-05] MEDS: THIAMINE 100 MG TAB PO SCH (11:42)
[2025-02-05] MEDS: CALCIUM CARBONATE 500 MG CHEWABLE PO PRN (11:42)
[2025-02-05] MEDS: traMADol 50 MG TAB PO SCH (11:43)
[2025-02-05] MEDS: SEVELAMER 800 MG TAB PO SCH (11:44)
[2025-02-05] MEDS: FOLIC ACID-VIT B COMPLEX-VIT C 1 CAP PO SCH (11:44)
[2025-02-05] MEDS: CHOLECALCIFEROL 10 MCG (400 IU) TABLET PO SCH (11:44)
[2025-02-05] MEDS: CALCIUM ACETATE 667 MG TAB PO SCH (11:44)
[2025-02-05] MEDS: FUROSEMIDE 80 MG TAB PO SCH (11:44)
--- NOTE | 2025-02-05 12:48 | P.NPCON ---
History of Present Illness - Reason for Consult end stage renal disease - History of Present Illness Patient is a 74-year-old male with history of end-stage renal disease maintained on hemodialysis, currently dialyzing with a right IJ permacath. Patient also has a fistula in his right upper arm which is not mature yet. He is admitted to the hospital with complaints of diarrhea. C. difficile toxin was positive as outpatieNT. Patient has had at least 4-5 bowel movements since this morning. Blood pressure was low. Currently maintained on IV fluids. No history of fever chills. No significant abdominal pain. Patient has been maintained on antibiotics for left foot wound. Past Medical History Past Medical History: Dialysis, Hyperlipidemia, Hypertension, Memory Impairment, Renal Disease Additional Past Medical History / Comment(s): bleeding ulcer , ESRD - hemodialysis 3x/wk, pituitary gland tumor - removed 2015, Non hodgkin's lymphoma from [employer] [place] History of Any Multi-Drug Resistant Organisms: None Reported Additional Past Surgical History / Comment(s): pituitary gland tumor removal 2015, partial Lt. knee replacement, Rt. brachial fistula insertion Past Anesthesia/Blood Transfusion Reactions: No Reported Reaction Past Psychological History: No Psychological Hx Reported Smoking Status: Former smoker Past Alcohol Use History: None Reported Additional Past Alcohol Use History / Comment(s): quit 1996. no alcohol since 2011 Past Drug Use History: None Reported - Past Family History Father Family Medical History: Renal Disease Medications and Allergies Home Medications Medication Instructions Recorded Confirmed Type B Complex W-C No.20/Folic Acid 1 cap PO DAILY 08/05/24 02/04/25 History [Renal Caps Softgel] Cholecalciferol [Vitamin D3 (10 10 mcg PO BID 08/05/24 02/04/25 History Mcg = 400 Iu)] Furosemide [Lasix] 80 mg PO DAILY 08/05/24 02/04/25 History Lovastatin [Mevacor] 20 mg PO HS 08/05/24 02/04/25 History traMADol HCL 100 mg PO BID 08/05/24 02/04/25 History Memantine [Namenda] 5 mg PO BID 12/22/24 02/04/25 History Midodrine HCl 10 mg PO MOWEFR 12/22/24 02/04/25 History Sucroferric Oxyhydroxide [Velphoro] 500 mg PO TID-W/MEALS 12/22/24 02/04/25 History amLODIPine [Norvasc] 10 mg PO DAILY 12/22/24 02/04/25 History carvediloL [Coreg] 3.125 mg PO BID 12/22/24 02/04/25 History Calcium Acetate [PhosLo] 667 mg PO TID-W/MEALS #30 tab 12/28/24 02/04/25 Rx Thiamine HCl [Vitamin B-1] 200 mg PO DAILY 02/04/25 02/04/25 History Allergies Allergy/AdvReac Type Severity Reaction Status Date / Time latex Allergy Rash/Hives Verified 02/04/25 17:24 levofloxacin Allergy Rash/Hives Verified 02/04/25 17:24 Sulfa (Sulfonamide Allergy Rash/Hives Verified 02/04/25 17:24 Antibiotics) aspirin AdvReac renal Verified 02/04/25 17:24 failure NSAIDS (Non-Steroidal AdvReac renal Verified 02/04/25 17:24 Anti-Inflamma failure Physical Exam Vitals: Vital Signs Temp Pulse Pulse Resp BP BP Pulse Ox 02/05/25 07:09 97.8 F 80 18 128/67 96 02/05/25 00:58 97.8 F 66 16 119/68 96 02/04/25 19:40 97.4 F L 68 16 99/64 98 02/04/25 17:46 97.9 F 68 19 94/60 96 02/04/25 15:14 75 16 96/62 95 Intake and Output 02/04/25 02/05/25 02/05/25 22:59 06:59 14:59 Other: Weight 91.172 kg Patient is awake, comfortable, no acute distress Examination of the heart S1-S2 Examination of the lungs bilateral breath sounds are heard Abdomen is soft nontender Examination of lower extremities shows no evidence of edema. Left foot is wrapped PRECISION ASSEMBLER exam grossly intact Results - Lab Results Most recent lab results Calcium 8.2 mg/dL (8.4-10.2) L 02/04/25 14:07 02/05/25 02:42 02/04/25 14:07 Assessment and Plan Assessment: 1. End-stage renal disease on hemodialysis on Thursday schedule 2. C. difficile colitis with recent history of antibiotics for left foot wound 3. Hypovolemia 4. 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 Hypertension with CKD stage V/ESRD Plan: Continue with IV fluids Continue with oral vancomycin Hemodialysis in a.m. with no significant UF Hold Lasix Continue with PhosLo and Renvela with meals. Thank you for the consultation. I will continue to follow the patient with you during his hospitalization
[2025-02-05 13:29] LABS: Anion Gap 19.50 mmol/L (4.00-12.00); BUN/Creat Ratio 7.18 Ratio (12.00-20.00); Blood Urea Nitrogen 51.0 mg/dL (9.0-27.0); Calcium 7.5 mg/dL (8.7-10.3); Carbon Dioxide 18.5 mmol/L (21.6-31.8); Chloride 97 mmol/L (96-109); Glucose 172 mg/dL (70-110); Potassium 3.6 mmol/L (3.5-5.5); Sodium 135 mmol/L (135-145)
--- NOTE | 2025-02-05 13:34 | P.PN ---
Subjective Progress Note Date: 02/05/25 Pt doing well today, no new complaints other than heart burn. Gen: In NAD, non-toxic HEENT: normocephalic, atraumatic, hearing acuity is intant, mucous membranes moist CVS: perfusing all extremities well, no pitting edema, Respiratory: symmetric chest expansion, no accessory muscle use, GI: soft, diffusely tender to palpation, ND, : no suprapubic tenderness, no CVA tenderness MSK/Derm: no rashes, cyanosis Neuro: CN II-XII intact, no motor weakness, Psych: cooperative, euthymic mood, judgment and insight is intact Hospital Course: 74-year-old male with medical history of type 2 diabetes, hypertension, hyperlipidemia, end-stage renal disease on dialysis, who has recently been on antibiotics for the past month for osteomyelitis with cefazolin presented for diarrhea. In the emergency room, patient was afebrile, 92/44, heart rate 64, 94% on room air. CBC was remarkable for leukocytosis of 27.3, platelets of 155. Basic metabolic panel shows sodium 133, potassium 3.4, chloride 96, BUN of 45, creatinine of 5.55. Liver function test show elevated alkaline phosphatase, low albumin of 2.8. No images to review. Assessment/plan: Severe sepsis C. difficile colitis Left foot osteomyelitis -Continue cefazolin for osteomyelitis - Start oral vancomycin 125 mg 4 times a day - Special contact precautions - IV fluids - Pain control: Tylenol as needed - ID consult Hypertension Hyperlipidemia Type 2 diabetes End-stage renal disease -Home medications reviewed and reconciled - Nephrology consulted Patient is full code DVT prophylaxis with heparin 3 times daily Objective - Vital Signs Vital signs: Vital Signs Temp 97.8 F 02/05/25 07:09 Pulse 80 02/05/25 07:09 Resp 18 02/05/25 07:09 BP 128/67 02/05/25 07:09 Pulse Ox 96 02/05/25 07:09 FiO2 Intake & Output 02/04/25 02/05/25 02/05/25 18:59 06:59 18:59 Weight 91.172 kg 91.172 kg - Labs CBC & Chem 7: 02/05/25 02:42 02/05/25 02:42 Labs: Abnormal Lab Results - Last 24 Hours (Table) 02/04/25 02/04/25 02/05/25 Range/Units 14:07 14:07 02:42 WBC 27.28 H 30.17 H (4.50-10.00) 10*3/uL RBC 3.78 L 3.58 L (4.40-5.60) 10*6/uL Hgb 12.1 L 11.2 L (13.0-17.0) g/dL Hct 35.7 L 35.5 L (39.6-50.0) % MCV 99.2 H (80.0-97.0) FL MCHC 31.5 L (32.0-37.0) g/dL RDW 17.7 H (11.5-14.5) % Immature Gran # 0.28 H 0.38 H (0.00-0.04) 10*3/uL Neutrophils # 24.15 H 26.55 H (1.80-7.70) 10*3/uL Lymphocytes # 0.72 L 0.87 L (0.90-5.00) 10*3/uL Monocytes # 1.94 H 2.23 H (0.20-1.00) 10*3/uL Basophils # 0.13 H (0.00-0.10) 10*3/uL NRBC/100 WBC Diff 0.02 H (0.00-0.01) X 10*3/uL Sodium 133 L (137-145) mmol/L Potassium 3.4 L (3.5-5.1) mmol/L Chloride 96 L (98-107) mmol/L Carbon Dioxide (21.6-31.8) mmol/L Anion Gap (4.00-12.00) mmol/L BUN 45 H (9-20) mg/dL Creatinine 5.55 H (0.66-1.25) mg/dL Est GFR (CKD-EPI) (>=60) BUN/Creatinine Ratio (12.00-20.00) Ratio Glucose (70-110) mg/dL Calcium 8.2 L (8.4-10.2) mg/dL Alkaline Phosphatase 134 H (38-126) U/L Total Protein 5.5 L (6.3-8.2) g/dL Albumin 2.8 L (3.5-5.0) g/dL 02/05/25 Range/Units 02:42 WBC (4.50-10.00) 10*3/uL RBC (4.40-5.60) 10*6/uL Hgb (13.0-17.0) g/dL Hct (39.6-50.0) % MCV (80.0-97.0) FL MCHC (32.0-37.0) g/dL RDW (11.5-14.5) % Immature Gran # (0.00-0.04) 10*3/uL Neutrophils # (1.80-7.70) 10*3/uL Lymphocytes # (0.90-5.00) 10*3/uL Monocytes # (0.20-1.00) 10*3/uL Basophils # (0.00-0.10) 10*3/uL NRBC/100 WBC Diff (0.00-0.01) X 10*3/uL Sodium (137-145) mmol/L Potassium (3.5-5.1) mmol/L Chloride (98-107) mmol/L Carbon Dioxide 18.5 L (21.6-31.8) mmol/L Anion Gap 19.50 H (4.00-12.00) mmol/L BUN 51.0 H (9-20) mg/dL Creatinine 7.1 H (0.66-1.25) mg/dL Est GFR (CKD-EPI) 7 L (>=60) BUN/Creatinine Ratio 7.18 L (12.00-20.00) Ratio Glucose 172 H (70-110) mg/dL Calcium 7.5 L (8.4-10.2) mg/dL Alkaline Phosphatase (38-126) U/L Total Protein (6.3-8.2) g/dL Albumin (3.5-5.0) g/dL
[2025-02-05] MEDS: POTASSIUM CHLORIDE ER 20 MEQ TAB.ER PO STA (14:25)
[2025-02-05] MEDS: VANCOMYCIN 125 MG CAPSULE PO SCH (17:03)
[2025-02-05] MEDS: ATORVASTATIN 10 MG TAB PO SCH (20:54)
[2025-02-05] MEDS: MEMANTINE 5 MG TAB PO SCH (20:54)
--- NOTE | 2025-02-05 22:56 | P.CONS ---
History of Present Illness - Reason for Consult Consult date: 02/05/25 C. difficile on antibiotics for positive Requesting physician: Erlinda Holder - Chief Complaint Diarrhea x 1 week - History of Present Illness Patient is a 74-year-old male with a past medical history significant for hypertension hyperlipidemia end-stage renal disease on dialysis patient was recently admitted at this facility and the patient has been diagnosed with left foot infected callus with concern for underlying osteomyelitis culture positive for MSSA and strep and the patient was advised a 6-week course of IV cefazolin through the dialysis the patient has been seen in the outpatient setting patient presented to the hospital with diarrhea in this patient symptom has been going on for about a week patient complaining of multiple loose stools per day denies any blood or mucus in the stool has been complaining of some crampy lower abdominal pain mild to moderate intensity with episodes of diarrhea patient denies any nausea or vomiting and no high-grade fever and mention wound on the plantar aspect of the left foot is currently healing on presentation to the hospital the patient was afebrile no fever 74 subsequently patient was not tachycardic hypotensive or hypoxic patient did have white count 27.28 which is up to 30.17 BUN/creatinine has been elevated liver enzymes are normal patient did have a stool for C. difficile positive on 02/03/2025 patient was started on oral vancomycin continued on the IV cefazolin infectious disease was consulted for further management of antibiotic therapy Review of Systems Positive point and negatives has been mentioned in the HPI, complete review of systems was performed and all other systems are negative Past Medical History Past Medical History: Dialysis, Hyperlipidemia, Hypertension, Memory Impairment, Renal Disease Additional Past Medical History / Comment(s): bleeding ulcer , ESRD - hemodialysis 3x/wk, pituitary gland tumor - removed 2015, Non hodgkin's lymphoma from [employer] [place] History of Any Multi-Drug Resistant Organisms: None Reported Additional Past Surgical History / Comment(s): pituitary gland tumor removal 2015, partial Lt. knee replacement, Rt. brachial fistula insertion Past Anesthesia/Blood Transfusion Reactions: No Reported Reaction Past Psychological History: No Psychological Hx Reported Smoking Status: Former smoker Past Alcohol Use History: None Reported Additional Past Alcohol Use History / Comment(s): quit 1996. no alcohol since 2011 Past Drug Use History: None Reported - Past Family History Father Family Medical History: Renal Disease Medications and Allergies Home Medications Medication Instructions Recorded Confirmed Type B Complex W-C No.20/Folic Acid 1 cap PO DAILY 08/05/24 02/04/25 History [Renal Caps Softgel] Cholecalciferol [Vitamin D3 (10 10 mcg PO BID 08/05/24 02/04/25 History Mcg = 400 Iu)] Furosemide [Lasix] 80 mg PO DAILY 08/05/24 02/04/25 History Lovastatin [Mevacor] 20 mg PO HS 08/05/24 02/04/25 History traMADol HCL 100 mg PO BID 08/05/24 02/04/25 History Memantine [Namenda] 5 mg PO BID 12/22/24 02/04/25 History Midodrine HCl 10 mg PO MOWEFR 12/22/24 02/04/25 History Sucroferric Oxyhydroxide [Velphoro] 500 mg PO TID-W/MEALS 12/22/24 02/04/25 History amLODIPine [Norvasc] 10 mg PO DAILY 12/22/24 02/04/25 History carvediloL [Coreg] 3.125 mg PO BID 12/22/24 02/04/25 History Calcium Acetate [PhosLo] 667 mg PO TID-W/MEALS #30 tab 12/28/24 02/04/25 Rx Thiamine HCl [Vitamin B-1] 200 mg PO DAILY 02/04/25 02/04/25 History Allergies Allergy/AdvReac Type Severity Reaction Status Date / Time latex Allergy Rash/Hives Verified 02/04/25 17:24 levofloxacin Allergy Rash/Hives Verified 02/04/25 17:24 Sulfa (Sulfonamide Allergy Rash/Hives Verified 02/04/25 17:24 Antibiotics) aspirin AdvReac renal Verified 02/04/25 17:24 failure NSAIDS (Non-Steroidal AdvReac renal Verified 02/04/25 17:24 Anti-Inflamma failure Physical Exam Vitals: Vital Signs Temp Pulse Pulse Resp BP BP Pulse Ox 02/05/25 07:09 97.8 F 80 18 128/67 96 02/05/25 00:58 97.8 F 66 16 119/68 96 02/04/25 19:40 97.4 F L 68 16 99/64 98 02/04/25 17:46 97.9 F 68 19 94/60 96 02/04/25 15:14 75 16 96/62 95 Intake and Output 06/28/25 06/29/25 06/29/25 22:59 06:59 14:59 Other: Weight 91.172 kg GENERAL DESCRIPTION: Elderly male lying in bed, no distress. No tachypnea or accessory muscle of respiration use. HEENT: Shows Pallor , no scleral icterus. Oral mucous membrane is dry. NECK: Trachea central, no thyromegaly. LUNGS: Unlabored breathing. Clear to auscultation anteriorly. No wheeze or crackle. HEART: S1, S2, regular rate and rhythm. No loud murmur ABDOMEN: Soft, no tenderness , guarding or rigidity, no organomegaly EXTREMITIES: Left foot wound on the plantar aspect has decreased in size with no slough tissue or any drainage. SKIN: No rash, no masses palpable. NEUROLOGICAL: The patient is awake, alert, oriented x3, mood and affect normal. Results CBC & Chem 7: 02/05/25 02:42 02/05/25 02:42 Labs: Abnormal Lab Results - Last 24 Hours (Table) 02/04/25 02/04/25 02/05/25 Range/Units 14:07 14:07 02:42 WBC 27.28 H 30.17 H (4.50-10.00) 10*3/uL RBC 3.78 L 3.58 L (4.40-5.60) 10*6/uL Hgb 12.1 L 11.2 L (13.0-17.0) g/dL Hct 35.7 L 35.5 L (39.6-50.0) % MCV 99.2 H (80.0-97.0) FL MCHC 31.5 L (32.0-37.0) g/dL RDW 17.7 H (11.5-14.5) % Immature Gran # 0.28 H 0.38 H (0.00-0.04) 10*3/uL Neutrophils # 24.15 H 26.55 H (1.80-7.70) 10*3/uL Lymphocytes # 0.72 L 0.87 L (0.90-5.00) 10*3/uL Monocytes # 1.94 H 2.23 H (0.20-1.00) 10*3/uL Basophils # 0.13 H (0.00-0.10) 10*3/uL NRBC/100 WBC Diff 0.02 H (0.00-0.01) X 10*3/uL Sodium 133 L (137-145) mmol/L Potassium 3.4 L (3.5-5.1) mmol/L Chloride 96 L (98-107) mmol/L BUN 45 H (9-20) mg/dL Creatinine 5.55 H (0.66-1.25) mg/dL Calcium 8.2 L (8.4-10.2) mg/dL Alkaline Phosphatase 134 H (38-126) U/L Total Protein 5.5 L (6.3-8.2) g/dL Albumin 2.8 L (3.5-5.0) g/dL Assessment and Plan (1) C. difficile diarrhea Current Visit: Yes Status: Acute Code(s): A04.72 - ENTEROCOLITIS D/T CLOSTRIDIUM DIFFICILE, NOT SPCF RECUR SNOMED Code(s): 1660466030267 (2) Leukocytosis Current Visit: Yes Status: Acute Code(s): D72.829 - ELEVATED WHITE BLOOD CELL COUNT, UNSPECIFIED SNOMED Code(s): 129799180 (3) Allergy to multiple antibiotics Current Visit: No Status: Acute Code(s): Z88.1 - ALLERGY STATUS TO OTHER ANTIBIOTIC AGENTS SNOMED Code(s): 326038612 (4) Osteomyelitis of left foot Current Visit: No Status: Acute Code(s): M86.9 - OSTEOMYELITIS, UNSPECIFIED SNOMED Code(s): 4206449741059917 Plan: 1patient [facility] with significant diarrhea elevated white count and this patient has been diagnosed with C. difficile colitis patient has been exposed to antibiotic for left foot infected callus and concern for underlying osteomyelitis in the middle of December culture positive for MSSA and strep patient did have overall improvement to the left foot plantar wound and has received adequate IV antibiotic therapy keeping in mind the patient did have active C. difficile colitis will recommend to discontinue cefazolin 2-for C. difficile colitis with worsening white count we will increase the dose of vancomycin to 500 mg p.o. every 6 hours and avoid antimotility agent if diarrhea persist may add Questran for symptomatic relief 3-patient encouraged to increase his probiotic and yogurt intake 4-local wound care to the left foot wound with a dry Aquacel dressing change q. 48-hour discussed with the nursing staff We will follow on clinical condition and cultures to further adjust medication if needed Thank you for this consultation we will follow the patient along with you Dictation was produced using [employer] dictation software. please excuse any grammatical, word or spelling errors. Time with Patient: Greater than 30
[2025-02-06 07:51] LABS: Basophils # (A) 0.10 X 10*3/uL (0.00-0.10); Basophils % (A) 0.5 %; Eosinophils # (A) 0.16 X 10*3/uL (0.04-0.35); Eosinophils % (A) 0.7 %; HCT 35.1 % (39.6-50.0); HGB 11.5 g/dL (13.0-17.0); Immature Grans, Automated 1.10 %; Lymphocytes # (A) 0.87 X 10*3/uL (0.90-5.00); Lymphocytes % (A) 3.9 %; MCH 31.3 pg (27.0-32.0); MCHC 32.8 g/dL (32.0-37.0); MCV 95.4 FL (80.0-97.0); Monocytes # (A) 2.15 X 10*3/uL (0.20-1.00); Monocytes % (A) 9.7 %; NRBC Per 100 WBC 0 X 10*3/uL (0.00-0.01); Neutrophils # (A) 18.60 X 10*3/uL (1.80-7.70); Neutrophils % (A) 84.1 %; Platelet Count 150 X 10*3/uL (140-440); RBC 3.68 X 10*6/uL (4.40-5.60); RDW 17.4 % (11.5-14.5); WBC 22.12 X 10*3/uL (4.50-10.00)
[2025-02-06 08:01] LABS: Anion Gap 15.40 mmol/L (4.00-12.00); BUN/Creat Ratio 8.56 Ratio (12.00-20.00); Blood Urea Nitrogen 67.6 mg/dL (9.0-27.0); Calcium 7.8 mg/dL (8.7-10.3); Carbon Dioxide 20.6 mmol/L (21.6-31.8); Chloride 98 mmol/L (96-109); Glucose 107 mg/dL (70-110); Magnesium 1.8 mg/dL (1.5-2.4); Potassium 3.7 mmol/L (3.5-5.5); Sodium 134 mmol/L (135-145)
--- NOTE | 2025-02-06 11:10 | P.PN ---
Subjective Patient is seen in follow-up for end-stage renal disease. He is maintained on hemodialysis on Thursday schedule. Had about 3 loose bowel movements overnight. Tolerating oral intake. Vital signs are stable. General: No acute distress. HEENT: Head exam is unremarkable. LUNGS: No audible rhonchi or wheezes. HEART: Rate and Rhythm are regular. ABDOMEN: Nontender. EXTREMITITES: Trace edema. Objective - Vital Signs Vital signs: Vital Signs Temp 97.4 F L 02/06/25 07:43 Pulse 73 02/06/25 07:43 Resp 18 02/06/25 07:43 BP 123/80 02/06/25 07:43 Pulse Ox 98 02/06/25 07:43 FiO2 Intake & Output 02/05/25 02/06/25 02/06/25 18:59 06:59 18:59 Output Total 3 Balance -3 Output: Urine 3 Other: # Bowel Movements 3 - Labs CBC & Chem 7: 02/06/25 03:06 02/06/25 03:06 Labs: Abnormal Lab Results - Last 24 Hours (Table) 02/05/25 02/06/25 02/06/25 Range/Units 02:42 03:06 03:06 WBC 22.12 H (4.50-10.00) X 10*3/uL RBC 3.68 L (4.40-5.60) X 10*6/uL Hgb 11.5 L (13.0-17.0) g/dL Hct 35.1 L (39.6-50.0) % RDW 17.4 H (11.5-14.5) % Immature Gran # 0.24 H (0.00-0.04) X 10*3/uL Neutrophils # 18.60 H (1.80-7.70) X 10*3/uL Lymphocytes # 0.87 L (0.90-5.00) X 10*3/uL Monocytes # 2.15 H (0.20-1.00) X 10*3/uL Sodium 134 L (135-145) mmol/L Carbon Dioxide 18.5 L 20.6 L (21.6-31.8) mmol/L Anion Gap 19.50 H 15.40 H (4.00-12.00) mmol/L BUN 51.0 H 67.6 H (9.0-27.0) mg/dL Creatinine 7.1 H 7.9 H (0.6-1.5) mg/dL Est GFR (CKD-EPI) 7 L 7 L (>=60) BUN/Creatinine Ratio 7.18 L 8.56 L (12.00-20.00) Ratio Glucose 172 H (70-110) mg/dL Calcium 7.5 L 7.8 L (8.7-10.3) mg/dL Assessment and Plan Plan: Assessment: 1. End-stage renal disease maintained on hemodialysis on Thursday schedule. 2. C. difficile colitis on oral vancomycin. 3. Chronic kidney disease mineral bone disease maintained on phosphate binders. 4. Hypertension with chronic kidney disease. Controlled. Plan: Hemodialysis today. Hep-Lock IV fluids.
[2025-02-06] MEDS: MIDODRINE 5 MG TAB PO SCH (12:23)
--- NOTE | 2025-02-06 13:19 | P.PN ---
Subjective Progress Note Date: 02/06/25 Pt doing better today, had 3 loose BMs overnight. Gen: In NAD, non-toxic HEENT: normocephalic, atraumatic, hearing acuity is intant, mucous membranes moist CVS: perfusing all extremities well, no pitting edema, Respiratory: symmetric chest expansion, no accessory muscle use, GI: soft, diffusely tender to palpation, ND, : no suprapubic tenderness, no CVA tenderness MSK/Derm: no rashes, cyanosis Neuro: CN II-XII intact, no motor weakness, Psych: cooperative, euthymic mood, judgment and insight is intact Hospital Course: 74-year-old male with medical history of type 2 diabetes, hypertension, h yperlipidemia, end-stage renal disease on dialysis, who has recently been on antibiotics for the past month for osteomyelitis with cefazolin presented for diarrhea. In the emergency room, patient was afebrile, 92/44, heart rate 64, 94% on room air. CBC was remarkable for leukocytosis of 27.3, platelets of 155. Basic metabolic panel shows sodium 133, potassium 3.4, chloride 96, BUN of 45, creatinine of 5.55. Liver function test show elevated alkaline phosphatase, low albumin of 2.8. No images to review. Assessment/plan: Severe sepsis C. difficile colitis Left foot osteomyelitis -Continue cefazolin for osteomyelitis - Start oral vancomycin 125 mg 4 times a day, increased to 500mg q6h - Special contact precautions - IV fluids - Pain control: Tylenol as needed - ID consult Hypertension Hyperlipidemia Type 2 diabetes End-stage renal disease -Home medications reviewed and reconciled - Nephrology consulted Patient is full code DVT prophylaxis with heparin 3 times daily Objective - Vital Signs Vital signs: Vital Signs Temp 97.4 F L 02/06/25 07:43 Pulse 73 02/06/25 07:43 Resp 18 02/06/25 07:43 BP 123/80 02/06/25 07:43 Pulse Ox 98 02/06/25 07:43 FiO2 Intake & Output 02/05/25 02/06/25 02/06/25 18:59 06:59 18:59 Output Total 3 Balance -3 Output: Urine 3 Other: # Bowel Movements 3 - Labs CBC & Chem 7: 02/06/25 03:06 02/06/25 03:06 Labs: Abnormal Lab Results - Last 24 Hours (Table) 02/05/25 02/06/25 02/06/25 Range/Units 02:42 03:06 03:06 WBC 22.12 H (4.50-10.00) X 10*3/uL RBC 3.68 L (4.40-5.60) X 10*6/uL Hgb 11.5 L (13.0-17.0) g/dL Hct 35.1 L (39.6-50.0) % RDW 17.4 H (11.5-14.5) % Immature Gran # 0.24 H (0.00-0.04) X 10*3/uL Neutrophils # 18.60 H (1.80-7.70) X 10*3/uL Lymphocytes # 0.87 L (0.90-5.00) X 10*3/uL Monocytes # 2.15 H (0.20-1.00) X 10*3/uL Sodium 134 L (135-145) mmol/L Carbon Dioxide 18.5 L 20.6 L (21.6-31.8) mmol/L Anion Gap 19.50 H 15.40 H (4.00-12.00) mmol/L BUN 51.0 H 67.6 H (9.0-27.0) mg/dL Creatinine 7.1 H 7.9 H (0.6-1.5) mg/dL Est GFR (CKD-EPI) 7 L 7 L (>=60) BUN/Creatinine Ratio 7.18 L 8.56 L (12.00-20.00) Ratio Glucose 172 H (70-110) mg/dL Calcium 7.5 L 7.8 L (8.7-10.3) mg/dL
[2025-02-06] MEDS: ALTEPLASE 2 MG VIAL (CATHFLO) IV STA (14:20)
[2025-02-06 16:33] LABS: Glucose,Whole Blood 207 mg/dL (70-110)
[2025-02-06] MEDS: FAMOTIDINE 20 MG/2 ML VIAL IV SCH (20:42)
--- NOTE | 2025-02-06 22:51 | P.PN ---
Subjective Progress Note Date: 02/06/25 Principal diagnosis: Reason for follow-up is C. difficile colitis Patient is a 74-year-old male with a past medical history significant for hypertension hyperlipidemia end-stage renal disease on dialysis patient was recently admitted at this facility and the patient has been diagnosed with left foot infected callus with concern for underlying osteomyelitis for the patient was getting cefazolin through the dialysis and Flagyl presented to hospital with significant diarrhea and has been diagnosed with a C. difficile colitis. On today's evaluation that is 02/06/2025, patient has been afebrile, patient is breathing comfortably and is currently on room air, patient denies having any chest pain and cough, patient denies nausea vomiting mention diarrhea is slightly slowed down denies any blood or mucus in the stool. Patient white count is down to 22.12 creatinine 7.9 Objective - Vital Signs Vital signs: Vital Signs Temp 97.3 F L 02/06/25 14:00 Pulse 70 02/06/25 14:00 Resp 18 02/06/25 14:00 BP 112/65 02/06/25 14:00 Pulse Ox 94 L 02/06/25 14:00 FiO2 Intake & Output 02/05/25 02/06/25 02/06/25 18:59 06:59 18:59 Output Total 3 Balance -3 Output: Urine 3 Other: # Bowel Movements 3 - Exam GENERAL DESCRIPTION: An elderly male lying in bed in no distress RESPIRATORY SYSTEM: Unlabored breathing , decreased breath sounds at bases HEART: S1 S2 regular rate and rhythm , ABDOMEN: Soft , no tenderness EXTREMITIES: Left foot wound is currently dressed - Labs CBC & Chem 7: 02/06/25 03:06 02/06/25 03:06 Labs: Abnormal Lab Results - Last 24 Hours (Table) 02/06/25 02/06/25 02/06/25 Range/Units 03:06 03:06 16:31 WBC 22.12 H (4.50-10.00) X 10*3/uL RBC 3.68 L (4.40-5.60) X 10*6/uL Hgb 11.5 L (13.0-17.0) g/dL Hct 35.1 L (39.6-50.0) % RDW 17.4 H (11.5-14.5) % Immature Gran # 0.24 H (0.00-0.04) X 10*3/uL Neutrophils # 18.60 H (1.80-7.70) X 10*3/uL Lymphocytes # 0.87 L (0.90-5.00) X 10*3/uL Monocytes # 2.15 H (0.20-1.00) X 10*3/uL Sodium 134 L (135-145) mmol/L Carbon Dioxide 20.6 L (21.6-31.8) mmol/L Anion Gap 15.40 H (4.00-12.00) mmol/L BUN 67.6 H (9.0-27.0) mg/dL Creatinine 7.9 H (0.6-1.5) mg/dL Est GFR (CKD-EPI) 7 L (>=60) BUN/Creatinine Ratio 8.56 L (12.00-20.00) Ratio POC Glucose (mg/dL) 207 H (70-110) mg/dL Calcium 7.8 L (8.7-10.3) mg/dL Assessment and Plan (1) C. difficile diarrhea Current Visit: Yes Status: Acute Code(s): A04.72 - ENTEROCOLITIS D/T CLOSTRIDIUM DIFFICILE, NOT SPCF RECUR SNOMED Code(s): 0301547134265 (2) Leukocytosis Current Visit: Yes Status: Acute Code(s): D72.829 - ELEVATED WHITE BLOOD CELL COUNT, UNSPECIFIED SNOMED Code(s): 976713662 (3) Allergy to multiple antibiotics Current Visit: No Status: Acute Code(s): Z88.1 - ALLERGY STATUS TO OTHER ANTIBIOTIC AGENTS SNOMED Code(s): 206869909 (4) Osteomyelitis of left foot Current Visit: No Status: Acute Code(s): M86.9 - OSTEOMYELITIS, UNSPECIFIED SNOMED Code(s): 8506523916825466 Plan: 1patient presented hospital with significant diarrhea elevated white count and this patient has been diagnosed with C. difficile colitis patient has been exposed to antibiotic for left foot infected callus and concern for underlying osteomyelitis in the middle of December culture positive for MSSA and strep patient did have overall improvement to the left foot plantar wound and has received adequate IV antibiotic therapy keeping in mind the patient did have active C. difficile colitis, cefazolin was discontinued 2-f-patient encouraged to increase his probiotic and yogurt intake 3-local wound care to the left foot wound with a dry Aquacel dressing change q. 48-hour discussed with the nursing staff 4-patient still have diarrhea and elevated white count though trending down recommend keeping the hospital for at least another 24 to 48 hours to make sure better control of his diarrhea and the white count continued track down currently on oral vancomycin 500 mg every 6 hours Dictation was produced using [employer] dictation software. please excuse any grammatical, word or spelling errors. Time with Patient: Less than 30
[2025-02-07 10:03] LABS: Basophils # (A) 0.06 10*3/uL (0.00-0.10); Basophils % (A) 0.4 %; Eosinophils # (A) 0.16 10*3/uL (0.04-0.35); Eosinophils % (A) 1.2 %; HCT 35.9 % (39.6-50.0); HGB 11.8 g/dL (13.0-17.0); Lymphocytes # (A) 0.85 10*3/uL (0.90-5.00); Lymphocytes % (A) 6.3 %; MCH 31.0 pg (27.0-32.0); MCHC 32.9 g/dL (32.0-37.0); MCV 94.2 fL (80.0-97.0); Monocytes # (A) 1.27 10*3/uL (0.20-1.00); Monocytes % (A) 9.3 %; Neutrophils # (A) 11.11 10*3/uL (1.80-7.70); Neutrophils % (A) 81.8 %; Platelet Count 126 10*3/uL (140-440); RBC 3.81 10*6/uL (4.40-5.60); RDW 17.4 % (11.5-14.5); WBC 13.59 10*3/uL (4.50-10.00)
--- NOTE | 2025-02-07 10:46 | P.PN ---
Subjective Patient is seen in follow-up for end-stage renal disease. He is maintained on hemodialysis on Thursday schedule. Diarrhea gradually improving. No problems with dialysis yesterday. Vital signs are stable. General: No acute distress. HEENT: Head exam is unremarkable. LUNGS: No audible rhonchi or wheezes. HEART: Rate and Rhythm are regular. ABDOMEN: Nontender. EXTREMITITES: Trace edema. Objective - Vital Signs Vital signs: Vital Signs Temp 97.9 F 02/07/25 08:48 Pulse 76 02/07/25 08:51 Resp 16 02/07/25 08:48 BP 109/72 02/07/25 08:48 Pulse Ox 97 02/07/25 00:59 FiO2 Intake & Output 02/06/25 02/07/25 02/07/25 18:59 06:59 18:59 Intake Total 500 Output Total 500 3 Balance 0 -3 Intake: Hemodialysis 500 Output: Urine 3 Hemodialysis 500 Hemodialysis Net Amount 0 Other: # Voids 3 3 3 # Bowel Movements 2 2 - Labs CBC & Chem 7: 02/07/25 09:12 02/06/25 03:06 Labs: Abnormal Lab Results - Last 24 Hours (Table) 02/06/25 02/07/25 Range/Units 16:31 09:12 WBC 13.59 H (4.50-10.00) 10*3/uL RBC 3.81 L (4.40-5.60) 10*6/uL Hgb 11.8 L (13.0-17.0) g/dL Hct 35.9 L (39.6-50.0) % RDW 17.4 H (11.5-14.5) % Plt Count 126 L (140-440) 10*3/uL Immature Gran # 0.14 H (0.00-0.04) 10*3/uL Neutrophils # 11.11 H (1.80-7.70) 10*3/uL Lymphocytes # 0.85 L (0.90-5.00) 10*3/uL Monocytes # 1.27 H (0.20-1.00) 10*3/uL POC Glucose (mg/dL) 207 H (70-110) mg/dL Assessment and Plan Plan: Assessment: 1. End-stage renal disease maintained on hemodialysis on Thursday schedule. 2. C. difficile colitis on oral vancomycin. 3. Chronic kidney disease mineral bone disease maintained on phosphate binders. 4. Hypertension with chronic kidney disease. Controlled. Plan: Hemodialysis tomorrow.
[2025-02-07 12:55] LABS: African American GFR (CKD) 10 (>60 ml/min/1.73 sqM); Anion Gap 13 mmol/L; Blood Urea Nitrogen 53 mg/dL (9-20); Calcium 8.2 mg/dL (8.4-10.2); Carbon Dioxide 21 mmol/L (22-30); Chloride 98 mmol/L (98-107); Glucose 104 mg/dL (74-99); Non-African American GFR(CKD) 8 (>60 ml/min/1.73 sqM); Potassium 4.0 mmol/L (3.5-5.1); Sodium 132 mmol/L (137-145)
[2025-02-07 13:06] VITALS: BP 112/94; PULSE 88; RESP 18
[2025-02-07 13:22] VITALS: TEMP 98.4
--- NOTE | 2025-02-07 17:52 | P.PN ---
Subjective Progress Note Date: 02/07/25 Principal diagnosis: C. difficile colitis and left foot infected ulcer Reason for follow-up is C. difficile colitis Patient is a 74-year-old male with a past medical history significant for hypertension hyperlipidemia end-stage renal disease on dialysis patient was recently admitted at this facility and the patient has been diagnosed with left foot infected callus with concern for underlying osteomyelitis for the patient was getting cefazolin through the dialysis and Flagyl presented to hospital with significant diarrhea and has been diagnosed with a C. difficile colitis. On today's evaluation that is 02/07/2025, patient has been afebrile, patient is breathing comfortably and is currently on room air, patient denies having any chest pain and cough, patient denies nausea vomiting. Mentions that his diarrhea has slowed down and having more formed bowel movement, denies any blood or mucus in the stool. Patient white count is down to 13.59, creatinine 5.9 Objective - Vital Signs Vital signs: Vital Signs Temp 98.4 F 02/07/25 13:22 Pulse 88 02/07/25 13:22 Resp 18 02/07/25 13:22 BP 112/94 02/07/25 13:22 Pulse Ox 97 02/07/25 00:59 FiO2 Intake & Output 02/06/25 02/07/25 02/07/25 18:59 06:59 18:59 Intake Total 500 Output Total 500 3 Balance 0 -3 Intake: Hemodialysis 500 Output: Urine 3 Hemodialysis 500 Hemodialysis Net Amount 0 Other: # Voids 3 3 3 # Bowel Movements 2 4 - Exam GENERAL DESCRIPTION: An elderly male lying in bed in no distress RESPIRATORY SYSTEM: Unlabored breathing , decreased breath sounds at bases HEART: S1 S2 regular rate and rhythm , ABDOMEN: Soft , no tenderness EXTREMITIES: Left foot wound is currently dressed - Labs CBC & Chem 7: 02/07/25 09:12 02/07/25 09:12 Labs: Abnormal Lab Results - Last 24 Hours (Table) 02/07/25 02/07/25 Range/Units 09:12 09:12 WBC 13.59 H (4.50-10.00) 10*3/uL RBC 3.81 L (4.40-5.60) 10*6/uL Hgb 11.8 L (13.0-17.0) g/dL Hct 35.9 L (39.6-50.0) % RDW 17.4 H (11.5-14.5) % Plt Count 126 L (140-440) 10*3/uL Immature Gran # 0.14 H (0.00-0.04) 10*3/uL Neutrophils # 11.11 H (1.80-7.70) 10*3/uL Lymphocytes # 0.85 L (0.90-5.00) 10*3/uL Monocytes # 1.27 H (0.20-1.00) 10*3/uL Sodium 132 L (137-145) mmol/L Carbon Dioxide 21 L (22-30) mmol/L BUN 53 H (9-20) mg/dL Creatinine 5.97 H (0.66-1.25) mg/dL Glucose 104 H (74-99) mg/dL Calcium 8.2 L (8.4-10.2) mg/dL Assessment and Plan (1) C. difficile diarrhea Status: Acute Code(s): A04.72 - ENTEROCOLITIS D/T CLOSTRIDIUM DIFFICILE, NOT SPCF RECUR SNOMED Code(s): 7959376556461 (2) Leukocytosis Status: Acute Code(s): D72.829 - ELEVATED WHITE BLOOD CELL COUNT, UNSPECIFIED SNOMED Code(s): 212518799 (3) Allergy to multiple antibiotics Status: Acute Code(s): Z88.1 - ALLERGY STATUS TO OTHER ANTIBIOTIC AGENTS SNOMED Code(s): 554639167 (4) Osteomyelitis of left foot Status: Acute Code(s): M86.9 - OSTEOMYELITIS, UNSPECIFIED SNOMED Code(s): 3534691814372813 Plan: 1patient presented hospital with significant diarrhea elevated white count and this patient has been diagnosed with C. difficile colitis patient has been exposed to antibiotic for left foot infected callus and concern for underlying osteomyelitis in the middle of December culture positive for MSSA and strep patient did have overall improvement to the left foot plantar wound and has received ad equate IV antibiotic therapy keeping in mind the patient did have active C. difficile colitis, cefazolin was discontinued 2-f-patient encouraged to increase his probiotic and yogurt intake 3-local wound care to the left foot wound with a dry Aquacel dressing change q. 48-hour discussed with the nursing staff 4-patient seem to have shown overall clinical improvement and the patient white count is down to 13,000 plan is to finish therapy with oral vancomycin x 10 days and close outpatient follow-up encouraged to increase his probiotic and yogurt intake patient was seen with the resident physician plan of care determined by myself dr Ana Lilia Rolle MD Internal Medicine Resident, PGY2 Infectious disease service Dictation was produced using [employer] dictation software. please excuse any grammatical, word or spelling errors. Time with Patient: Less than 30
--- NOTE | 2025-02-07 17:59 | P.DS ---
Providers Date of admission: 02/04/25 16:37 Expected date of discharge: 02/07/25 Attending physician: Flo Naranjo Consults: 02/04/25 16:36 Consult Physician Urgent Consulting Provider: Lisandra Jacobson Consult Reason/Comments: esrd on hd - m,w,f Do you want consulting provider notified?: Yes 02/04/25 16:46 Consult Physician Urgent Consulting Provider: Cindy Cespedes Consult Reason/Comments: c.diff, on antibiotics for osteo Do you want consulting provider notified?: Yes [facility] Course: Assesment Severe sepsis C. difficile colitis Left foot osteomyelitis Hypertension Hyperlipidemia Type 2 diabetes End-stage renal disease Hospital Course 74-year-old male with medical history of type 2 diabetes, hypertension, hyperlipidemia, end-stage renal disease on dialysis, who has recently been on antibiotics for the past month for osteomyelitis with cefazolin presented for diarrhea. In the emergency room, patient was afebrile, 92/44, heart rate 64, 94% on room air. CBC was remarkable for leukocytosis of 27.3, platelets of 155. Basic metabolic panel shows sodium 133, potassium 3.4, chloride 96, BUN of 45, creatinine of 5.55. Liver function test show elevated alkaline phosphatase, low albumin of 2.8. KUB ordered on 02/04/25 showed non-obstructive bowel gas pattern. Negative for pneumoperitineum. C. Difficile toxin was positive as outpatient. The patient was placed on IV cefazolin for osteomyelitis and vancomycin 500 mg QID PO for C. Difficile colitis on 02/05/25. The cefazolin was discontinued later on 02/05/25 per ID recommendations. While admitted, patient's vital signs were stable. Labs ordered while admitted showed improved leukocytosis. On day of discharge the patient indiciate that the number of BMs per day had reduced to 2 or 3 and they have become more formed and brownish rather than yellow and watery. Patient was counceled on importance of continued medication for 10 days with oral vancomycin. Patient was provided a paper script to bring to pharmacy of his choice. Patient and family were counseled on infection control measures such as hand washing. F/U plan: Patient should follow up with PCP within 2 weeks. Patient has hemodialysis scheduled for tomorrow. Routine wound care and ID follow up for osteomyelitis as previously discussed on prior discharge. Patient seen and examined at bedside. Vital signs reviewed and stable. Physical examination: Vital signs reviewed General: non toxic, no distress, appears at stated age, normal weight Derm: no unusual rashes/lesions, warm Head: atraumatic, normocephalic, symmetric Eyes: EOMI, anicteric sclera, pupils equal round reactive to light ENT: Nose and ears atraumatic Neck: No cervical lymphadenopathy, trachea midline, supple Mouth: no lip lesion, mucus membranes moist Cardiovascular: S1S2 reg, no murmur, positive dorsalis pedis pulse bilateral, no edema Lungs: CTA bilateral, no rhonchi, no rales, no accessory muscle use Abdominal: soft, nontender to palpation, no guarding Ext: muscle strength 5 out of 5 in all 4 extremities grossly, no gross muscle atrophy Neuro: CN II-XI grossly intact, no gross focal neuro deficits Psych: Alert, oriented to person, place, and time A total of 36 minutes of time were spent preparing this complex discharge summary. Patient was discharged on [02/07/2025]. Braden Conley MD PGY-1 TY Dictation was produced using [employer] dictation software. please excuse any grammatical, word or spelling errors. [facility] confidentiality statement: "The information contained in this communication, including attachments, is confidential, may be privileged, and is intended only for the use of the named recipient(s). Unauthorized use, disclosure, forwarding or copying is strictly prohibited and may be unlawful. If you have received this communication in error, please notify me IMMEDIATELY at the phone number or pager listed above." I saw and evaluated the patient during the barraza and critical portions of this encounter, and discussed the case in detail with the resident author of this note, I agree with the Assessment and Plan, and my changes, if any, are highlighted in blue. Patient Condition at Discharge: Stable Plan - Discharge Summary New Discharge Prescriptions: New Vancomycin Oral Solution [Vancomycin HCl Oral Soln] 500 mg PO Q6HR 10 Days #400 ml Continue Furosemide [Lasix] 80 mg PO DAILY Cholecalciferol [Vitamin D3 (10 Mcg = 400 Iu)] 10 mcg PO BID B Complex W-C No.20/Folic Acid [Renal Caps Softgel] 1 cap PO DAILY amLODIPine [Norvasc] 10 mg PO DAILY Midodrine HCl 10 mg PO MOWEFR Sucroferric Oxyhydroxide [Velphoro] 500 mg PO TID-W/MEALS traMADol HCL 100 mg PO BID Lovastatin [Mevacor] 20 mg PO HS carvediloL [Coreg] 3.125 mg PO BID Memantine [Namenda] 5 mg PO BID Calcium Acetate [PhosLo] 667 mg PO TID-W/MEALS #30 tab Thiamine HCl [Vitamin B-1] 200 mg PO DAILY Discharge Medication List B Complex W-C No.20/Folic Acid [Renal Caps Softgel] 1 cap PO DAILY 08/05/24 [History] Cholecalciferol [Vitamin D3 (10 Mcg = 400 Iu)] 10 mcg PO BID 08/05/24 [History] Furosemide [Lasix] 80 mg PO DAILY 08/05/24 [History] Lovastatin [Mevacor] 20 mg PO HS 08/05/24 [History] traMADol HCL 100 mg PO BID 08/05/24 [History] Memantine [Namenda] 5 mg PO BID 12/22/24 [History] Midodrine HCl 10 mg PO MOWEFR 12/22/24 [History] Sucroferric Oxyhydroxide [Velphoro] 500 mg PO TID-W/MEALS 12/22/24 [History] amLODIPine [Norvasc] 10 mg PO DAILY 12/22/24 [History] carvediloL [Coreg] 3.125 mg PO BID 12/22/24 [History] Calcium Acetate [PhosLo] 667 mg PO TID-W/MEALS #30 tab 12/28/24 [Rx] Thiamine HCl [Vitamin B-1] 200 mg PO DAILY 02/04/25 [History] Vancomycin Oral Solution [Vancomycin HCl Oral Soln] 500 mg PO Q6HR 10 Days #400 ml 02/07/25 [Rx] Follow up Appointment(s)/Referral(s): [facility]idential [facility] [NON-STAFF] - As Needed Keith Kowalski DO [Primary Care Provider] - 1-2 days (Office closed at time of discharge) Discharge Disposition: HOME SELF-CARE
== END 2025-02-07 19:42 | disposition home or self-care (01) | DRG 871 ==
LOC: EC 11:45 → 4SSUR 16:36 → OBSVTOIN 16:37 → 4SSUR 17:23
PROVIDERS: ADMIT Student in an Organized Health Care Education/Training Program; ATTEND Student in an Organized Health Care Education/Training Program
PROC: 5A1D70Z Performance of Urinary Filtration, Intermittent, Less than 6 Hours Per Day (ICD-10-PCS; principal; 2025-02-06)
DX: A41.9 Sepsis, unspecified organism (principal); N18.6 End stage renal disease; A04.72 Enterocolitis due to Clostridium difficile, not specified as recurrent; I12.0 Hypertensive chronic kidney disease with stage 5 chronic kidney disease or end stage renal disease; M86.8X7 Other osteomyelitis, ankle and foot; Z99.2 Dependence on renal dialysis; E11.22 Type 2 diabetes mellitus with diabetic chronic kidney disease; E11.621 Type 2 diabetes mellitus with foot ulcer; E11.69 Type 2 diabetes mellitus with other specified complication; L97.529 Non-pressure chronic ulcer of other part of left foot with unspecified severity; R65.20 Severe sepsis without septic shock; E86.1 Hypovolemia; E78.5 Hyperlipidemia, unspecified; Z79.899 Other long term (current) drug therapy; Z85.72 Personal history of non-Hodgkin lymphomas; Z87.891 Personal history of nicotine dependence; Z88.1 Allergy status to other antibiotic agents; Z96.653 Presence of artificial knee joint, bilateral; Z88.2 Allergy status to sulfonamides; Z91.040 Latex allergy status; Z88.6 Allergy status to analgesic agent
CPT/HCPCS: 36415; 74018; 80048; 80053; 83605; 83735; 85025; 90935; 96360; 99285

== ENCOUNTER 2025-02-08 14:28 | Inpatient (IN) | payer OTHER, MEDICARE ==
--- NOTE | 2025-02-08 16:38 | ED ---
General Adult HPI - General Chief complaint: Recheck/Abnormal Lab/Rx Stated complaint: cdiff Time Seen by Provider: 02/08/25 16:16 Source: patient, family, RN notes reviewed Mode of arrival: wheelchair Limitations: no limitations - History of Present Illness Initial comments: Patient is a 74-year-old male present to the emergency department with concerns with weakness. Patient recently discharged from the hospital. Patient unable to have his vancomycin prescription filled. Patient is having continued diarrhea however is more formed. Patient feels generally weak and required 2 people assistance to help him stand. Family is concerned as he will need rehab. - Related Data Home Medications Medication Instructions Recorded Confirmed B Complex W-C No.20/Folic Acid 1 cap PO DAILY 08/05/24 02/04/25 [Renal Caps Softgel] Cholecalciferol [Vitamin D3 (10 10 mcg PO BID 08/05/24 02/04/25 Mcg = 400 Iu)] Furosemide [Lasix] 80 mg PO DAILY 08/05/24 02/04/25 Lovastatin [Mevacor] 20 mg PO HS 08/05/24 02/04/25 traMADol HCL 100 mg PO BID 08/05/24 02/04/25 Memantine [Namenda] 5 mg PO BID 12/22/24 02/04/25 Midodrine HCl 10 mg PO MOWEFR 12/22/24 02/04/25 Sucroferric Oxyhydroxide [Velphoro] 500 mg PO TID-W/MEALS 12/22/24 02/04/25 amLODIPine [Norvasc] 10 mg PO DAILY 12/22/24 02/04/25 carvediloL [Coreg] 3.125 mg PO BID 12/22/24 02/04/25 Thiamine HCl [Vitamin B-1] 200 mg PO DAILY 02/04/25 02/04/25 Previous Rx's Medication Instructions Recorded Calcium Acetate [PhosLo] 667 mg PO TID-W/MEALS #30 tab 12/28/24 Vancomycin Oral Solution 500 mg PO Q6HR 10 Days #400 ml 02/07/25 [Vancomycin HCl Oral Soln] Allergies Allergy/AdvReac Type Severity Reaction Status Date / Time latex Allergy Rash/Hives Verified 02/08/25 14:37 levofloxacin Allergy Rash/Hives Verified 02/08/25 14:37 Sulfa (Sulfonamide Allergy Rash/Hives Verified 02/08/25 14:37 Antibiotics) aspirin AdvReac renal Verified 02/08/25 14:37 failure NSAIDS (Non-Steroidal AdvReac renal Verified 02/08/25 14:37 Anti-Inflamma failure Review of Systems ROS Statement: Those systems with pertinent positive or pertinent negative responses have been documented in the HPI. ROS Other: All systems not noted in ROS Statement are negative. Constitutional: Denies: fever Eyes: Denies: eye pain Respiratory: Denies: dyspnea Cardiovascular: Denies: chest pain Endocrine: Reports: fatigue Gastrointestinal: Reports: diarrhea Neurological: Reports: weakness Past Medical History Past Medical History: Dialysis, Hyperlipidemia, Hypertension, Memory Impairment, Renal Disease Additional Past Medical History / Comment(s): bleeding ulcer , ESRD - hemodialysis 3x/wk, pituitary gland tumor - removed 2015, Non hodgkin's lymphoma from [employer] [place] History of Any Multi-Drug Resistant Organisms: C-DIFF Date of last positivie culture/infection: 02/03/25 Additional Past Surgical History / Comment(s): pituitary gland tumor removal 2015, partial Lt. knee replacement, Rt. brachial fistula insertion Past Anesthesia/Blood Transfusion Reactions: No Reported Reaction Past Psychological History: No Psychological Hx Reported Smoking Status: Former smoker Past Alcohol Use History: None Reported Past Drug Use History: None Reported - Past Family History Father Family Medical History: Renal Disease General Exam Limitations: no limitations General appearance: alert, in no apparent distress Head exam: Present: normocephalic Eye exam: Present: normal appearance ENT exam: Present: mucous membranes dry Neck exam: Present: normal inspection Respiratory exam: Present: normal lung sounds bilaterally Cardiovascular Exam: Present: regular rate, normal rhythm GI/Abdominal exam: Present: soft. Absent: tenderness Extremities exam: Present: normal inspection Neurological exam: Present: alert. Absent: motor sensory deficit Psychiatric exam: Present: normal affect, normal mood Skin exam: Present: normal color Course Vital Signs 02/08/25 14:33 Temperature 97.7 F Pulse Rate 71 Respiratory 16 Rate Blood Pressure 91/53 O2 Sat by Pulse 94 L Oximetry Medical Decision Making - Medical Decision Making Was pt. sent in by a medical professional or institution (, PA, FENCE INSTALLER HELPER, urgent care, hospital, or shelter...) When possible be specific @ -No Did you speak to anyone other than the patient for history (EMS, parent, family, police, friend...)? What history was obtained from this source @ -Family is present helps provide history the patient is too weak to get up on his own Did you review nursing and triage notes (agree or disagree)? Why? @ -I reviewed and agree with nursing and triage notes Were old charts reviewed (outside hosp., previous admission, EMS record, old EKG, old radiological studies, urgent care reports/EKG's, shelter records)? Report findings @ -No old charts were reviewed Differential Diagnosis (chest pain, altered mental status, abdominal pain women, abdominal pain men, vaginal bleeding, weakness, fever, dyspnea, syncope, headache, dizziness, GI bleed, back pain, seizure, CVA, palpatations, mental health, musculoskeletal)? @ -Differential Weakness: Hypoglycemia, shock, sepsis, hyponatremia, anemia, infection, SC, ETOH, adverse medicine reaction, overdose, stroke, this is not meant to be an all-inclusive list. EKG interpreted by me (3pts min.). @ -As above X-rays interpreted by me (1pt min.). @ -None done CT interpreted by me (1pt min.). @ -None done U/S interpreted by me (1pt. min.). @ -None done What testing was considered but not performed or refused? (CT, X-rays, U/S, labs)? Why? @ -None What meds were considered but not given or refused? Why? @ -None Did you discuss the management of the patient with other professionals (professionals i.e. , PA, FENCE INSTALLER HELPER, lab, RT, psych nurse, geriatric social worker, hardwood floor sander, teacher, patient transport officer, continuous pillowcase cutter)? Give summary @ -Case discussed with practitioner Tu who will admit covering Dr. Contreras me Was smoking cessation discussed for >3mins.? @ -No Was critical care preformed (if so, how long)? @ -No Were there social determinants of health that impacted care today? How? (Homelessness, low income, unemployed, alcoholism, drug addiction, transportation, low edu. Level, literacy, decrease access to med. care, long term, rehab)? @ -No Was there de-escalation of care discussed even if they declined (Discuss DNR or withdrawal of care, Hospice)? DNR status @ -No What co-morbidities impacted this encounter? (DM, HTN, Smoking, COPD, CAD, Cancer, CVA, ARF, Chemo, Hep., AIDS, mental health diagnosis, sleep apnea, morbid obesity)? @ -Recent C. difficile admission Was patient admitted / discharged? Hospital course, mention meds given and route, prescriptions, significant lab abnormalities, going to OR and other pertinent info. @ -Patient presents with continued C. difficile symptoms and increased weakness. In addition patient unable to have his vancomycin filled. Patient will be admitted. Patient and family are made aware Undiagnosed new problem with uncertain prognosis? @ -No Drug Therapy requiring intensive monitoring for toxicity (Heparin, Nitro, Insulin, Cardizem)? @ -No Were any procedures done? @ -No Diagnosis/symptom? @ -C. difficile colitis, weakness Acute, or Chronic, or Acute on Chronic? @ -Acute, acute Uncomplicated (without systemic symptoms) or Complicated (systemic symptoms)? @ -Complicated with patient unable to get outpatient medications as well as generalized weakness Side effects of treatment? @ -No Exacerbation, Progression, or Severe Exacerbation? @ -No Poses a threat to life or bodily function? How? (Chest pain, USA, SC, pneumonia, PE, COPD, DKA, ARF, appy, cholecystitis, CVA, Diverticulitis, Homicidal, Suicidal, threat to staff... and all critical care pts) @ -No Disposition Clinical Impression: C. difficile diarrhea Disposition: ADMITTED IP TO THIS HOSP Is patient prescribed a controlled substance at d/c from ED?: No Referrals: Keith Kowalski DO [Primary Care Provider] - 1-2 days Time of Disposition: 17:16
[2025-02-08] MEDS: SODIUM CHLORIDE 0.9% 1,000 ML IV SCH (17:07)
[2025-02-08 17:15] LABS: Basophils # (A) 0.07 10*3/uL (0.00-0.10); Basophils % (A) 0.7 %; Eosinophils # (A) 0.08 10*3/uL (0.04-0.35); Eosinophils % (A) 0.8 %; HCT 39.3 % (39.6-50.0); HGB 13.3 g/dL (13.0-17.0); Immature Platelet Fraction 5.8 % (1.1-6.1); Lymphocytes # (A) 0.74 10*3/uL (0.90-5.00); Lymphocytes % (A) 7.0 %; MCH 31.1 pg (27.0-32.0); MCHC 33.8 g/dL (32.0-37.0); MCV 92.0 fL (80.0-97.0); Monocytes # (A) 1.24 10*3/uL (0.20-1.00); Monocytes % (A) 11.7 %; Neutrophils # (A) 8.29 10*3/uL (1.80-7.70); Neutrophils % (A) 78.5 %; Platelet Count 128 10*3/uL (140-440); RBC 4.27 10*6/uL (4.40-5.60); RDW 17.1 % (11.5-14.5); WBC 10.56 10*3/uL (4.50-10.00)
[2025-02-08] MEDS ORDERED: NALOXONE 0.4 MG/ML 1 ML VIAL IV PRN (17:16)
[2025-02-08 17:25] LABS: ALT <6 U/L (4-49); AST 45 U/L (17-59); African American GFR (CKD) 13 (>60 ml/min/1.73 sqM); Albumin 3.1 g/dL (3.5-5.0); Alkaline Phosphatase 161 U/L (38-126); Anion Gap 11 mmol/L; Blood Urea Nitrogen 40 mg/dL (9-20); Calcium 8.2 mg/dL (8.4-10.2); Carbon Dioxide 30 mmol/L (22-30); Chloride 97 mmol/L (98-107); Glucose 95 mg/dL (74-99); Non-African American GFR(CKD) 11 (>60 ml/min/1.73 sqM); Potassium 3.9 mmol/L (3.5-5.1); Sodium 138 mmol/L (137-145); Total Protein 6.0 g/dL (6.3-8.2)
[2025-02-08] MEDS: MIDODRINE 5 MG TAB PO SCH (17:56)
[2025-02-08] MEDS: VANCOMYCIN 125 MG CAPSULE PO SCH (18:02)
--- NOTE | 2025-02-08 18:21 | P.HPIM ---
History of Present Illness H&P Date: 02/08/25 Chief Complaint: Dizziness/unable to fill Rx The patient is a 74-year-old male with medical history of type 2 diabetes, hypertension, hyperlipidemia, end-stage renal disease on dialysis, who recently was admitted for diarrhea on 02/04/25, found to have Clostridium difficile co llitis and discharged on 02/07/25 with a script for oral vancomycin. The patient and his family were unable to get the Rx filled at several pharmacies and has gone without taking vancomycin for approximately 24 hours. Earlier today, the patient fell while getting on a bus to receive dialysis but did not lose consciousness. He has had chronic problems with balance and his family thinks that he may need rehab. The patient denies any new complaints today and reports that he has had diarrhea approximately 5-7 times in the last 24 hours but the stools have been more formed compared to when the diarrhea started days ago. Review of Systems Pertinent positives and negatives as discussed above, a complete review of systems was performed and all other systems are negative. Past Medical History Past Medical History: Dialysis, Hyperlipidemia, Hypertension, Memory Impairment, Renal Disease Additional Past Medical History / Comment(s): bleeding ulcer , ESRD - hemodialysis 3x/wk, pituitary gland tumor - removed 2015, Non hodgkin's lymphoma from [employer] [place] History of Any Multi-Drug Resistant Organisms: C-DIFF Date of last positivie culture/infection: 02/03/25 Additional Past Surgical History / Comment(s): pituitary gland tumor removal 2015, partial Lt. knee replacement, Rt. brachial fistula insertion Past Anesthesia/Blood Transfusion Reactions: No Reported Reaction Past Psychological History: No Psychological Hx Reported Smoking Status: Former smoker Past Alcohol Use History: None Reported Past Drug Use History: None Reported - Past Family History Father Family Medical History: Renal Disease Medications and Allergies Home Medications Medication Instructions Recorded Confirmed Type B Complex W-C No.20/Folic Acid 1 cap PO DAILY 08/05/24 02/04/25 History [Renal Caps Softgel] Cholecalciferol [Vitamin D3 (10 10 mcg PO BID 08/05/24 02/04/25 History Mcg = 400 Iu)] Furosemide [Lasix] 80 mg PO DAILY 08/05/24 02/04/25 History Lovastatin [Mevacor] 20 mg PO HS 08/05/24 02/04/25 History traMADol HCL 100 mg PO BID 08/05/24 02/04/25 History Memantine [Namenda] 5 mg PO BID 12/22/24 02/04/25 History Midodrine HCl 10 mg PO MOWEFR 12/22/24 02/04/25 History Sucroferric Oxyhydroxide [Velphoro] 500 mg PO TID-W/MEALS 12/22/24 02/04/25 History amLODIPine [Norvasc] 10 mg PO DAILY 12/22/24 02/04/25 History carvediloL [Coreg] 3.125 mg PO BID 12/22/24 02/04/25 History Calcium Acetate [PhosLo] 667 mg PO TID-W/MEALS #30 tab 12/28/24 02/04/25 Rx Thiamine HCl [Vitamin B-1] 200 mg PO DAILY 02/04/25 02/04/25 History Vancomycin Oral Solution 500 mg PO Q6HR 10 Days #400 ml 02/07/25 Rx [Vancomycin HCl Oral Soln] Allergies Allergy/AdvReac Type Severity Reaction Status Date / Time latex Allergy Rash/Hives Verified 02/08/25 14:37 levofloxacin Allergy Rash/Hives Verified 02/08/25 14:37 Sulfa (Sulfonamide Allergy Rash/Hives Verified 02/08/25 14:37 Antibiotics) aspirin AdvReac renal Verified 02/08/25 14:37 failure NSAIDS (Non-Steroidal AdvReac renal Verified 02/08/25 14:37 Anti-Inflamma failure Physical Exam Vitals: Vital Signs Temp Pulse Resp BP Pulse Ox 02/08/25 14:33 97.7 F 71 16 91/53 94 L Intake and Output 02/08/25 02/08/25 02/08/25 06:59 14:59 22:59 Other: Weight 94.801 kg Gen: In NAD, non-toxic HEENT: normocephalic, atraumatic, hearing acuity is intant, mucous membranes [address] CVS: 2+ bilateral non-tender pitting edema Respiratory: symmetric chest expansion, no accessory muscle use, GI: soft, no TTP, non-distended : no suprapubic tenderness, no CVA tenderness MSK/Derm: no rashes, cyanosis Neuro: CN II-XII intact, no motor weakness, Psych: cooperative, euthymic mood, judgment and insight is intact Results CBC & Chem 7: 02/08/25 17:06 02/08/25 17:06 Labs: Abnormal Lab Results - Last 24 Hours (Table) 02/08/25 02/08/25 Range/Units 17:06 17:06 WBC 10.56 H (4.50-10.00) 10*3/uL RBC 4.27 L (4.40-5.60) 10*6/uL Hct 39.3 L (39.6-50.0) % Plt Count 128 L (140-440) 10*3/uL Immature Gran # 0.14 H (0.00-0.04) 10*3/uL Neutrophils # 8.29 H (1.80-7.70) 10*3/uL Lymphocytes # 0.74 L (0.90-5.00) 10*3/uL Monocytes # 1.24 H (0.20-1.00) 10*3/uL Chloride 97 L (98-107) mmol/L BUN 40 H (9-20) mg/dL Creatinine 4.74 H (0.66-1.25) mg/dL Calcium 8.2 L (8.4-10.2) mg/dL Alkaline Phosphatase 161 H (38-126) U/L Total Protein 6.0 L (6.3-8.2) g/dL Albumin 3.1 L (3.5-5.0) g/dL Assessment and Plan Assessment: Assessment/plan: C. difficile colitis Leukocytosis -Oral vancomycin 500 mg QID -Renal diet - White count is downtrending Chronic Dizziness Generalized weakness # Likely secondary to chronic T2DM -PT/OT consulted Hypertension Hyperlipidemia Type 2 diabetes, not on any meds at home End-stage renal disease Mild cognitive disorder -Holding carvedilol and lasix due to softer blood pressures. -Nephrology consulted. Appreciate recommendations regarding dialysis while inpatient. -Continued on midodrine 10 p.o. 3 times a week - On phosphate binders, atorvastatin - On memantine 5 twice daily Patient is full code DVT prophylaxis with heparin 3 times daily Disposition: Pending clinical course I have seen and evaluated the patient today. Discussed with the resident and agree with the residents finding and plan as documented in the resident's note. Changes highlighted in blue font.
[2025-02-08] MEDS: HEPARIN SODIUM,PORCINE 5,000 UNIT/ML 1 ML VIAL SQ SCH (18:30)
[2025-02-08] MEDS: FAMOTIDINE 20 MG TAB PO SCH (20:57)
[2025-02-08] MEDS: CHOLECALCIFEROL 10 MCG (400 IU) TABLET PO SCH (20:57)
[2025-02-08] MEDS: MEMANTINE 5 MG TAB PO SCH (20:57)
[2025-02-08] MEDS: ATORVASTATIN 10 MG TAB PO SCH (20:57)
[2025-02-09] MEDS: CALCIUM ACETATE 667 MG TAB PO SCH (08:49)
[2025-02-09] MEDS: THIAMINE 100 MG TAB PO SCH (08:50)
[2025-02-09] MEDS: SEVELAMER 800 MG TAB PO SCH (08:50)
[2025-02-09] MEDS: FOLIC ACID-VIT B COMPLEX-VIT C 1 CAP PO SCH (08:54)
[2025-02-09 09:57] LABS: Basophils # (A) 0.07 10*3/uL (0.00-0.10); Basophils % (A) 0.6 %; Eosinophils # (A) 0.07 10*3/uL (0.04-0.35); Eosinophils % (A) 0.6 %; HCT 38.2 % (39.6-50.0); HGB 12.4 g/dL (13.0-17.0); Lymphocytes # (A) 1.08 10*3/uL (0.90-5.00); Lymphocytes % (A) 8.6 %; MCH 30.5 pg (27.0-32.0); MCHC 32.5 g/dL (32.0-37.0); MCV 94.1 fL (80.0-97.0); Monocytes # (A) 1.53 10*3/uL (0.20-1.00); Monocytes % (A) 12.1 %; Neutrophils # (A) 9.76 10*3/uL (1.80-7.70); Neutrophils % (A) 77.3 %; Platelet Count 157 10*3/uL (140-440); RBC 4.06 10*6/uL (4.40-5.60); RDW 17.3 % (11.5-14.5); WBC 12.61 10*3/uL (4.50-10.00)
[2025-02-09 10:16] LABS: African American GFR (CKD) 11 (>60 ml/min/1.73 sqM); Anion Gap 11 mmol/L; Blood Urea Nitrogen 49 mg/dL (9-20); Calcium 8.0 mg/dL (8.4-10.2); Carbon Dioxide 26 mmol/L (22-30); Chloride 99 mmol/L (98-107); Glucose 83 mg/dL (74-99); Non-African American GFR(CKD) 9 (>60 ml/min/1.73 sqM); Potassium 4.2 mmol/L (3.5-5.1); Sodium 136 mmol/L (137-145)
--- NOTE | 2025-02-09 10:39 | P.NPCON ---
History of Present Illness - Reason for Consult end stage renal disease - History of Present Illness Reason for consultation: End-stage renal disease History of present illness: Patient is a 74-year-old male seen in renal consultation for end-stage renal disease. Patient was seen and examined in the emergency room. He is maintained on hemodialysis on Thursday schedule. Patient came to the hospital due to generalized weakness and unable to afford medications. Patient was recently admitted with C. difficile. Patient states he when he went to [facility] oral vancomycin it was $2000 and came to the hospital for help. He did go to hemodialysis yesterday and completed the treatment without any issues. Blood pressure stable. Denies fever or chills. No vomiting or diarrhea. Denies chest pain or shortness of breath. He does make urine. Vital signs are stable. General: No acute distress. HEENT: Head exam is unremarkable. LUNGS: No audible rhonchi or wheezes. HEART: Rate and Rhythm are regular. ABDOMEN: Nontender. EXTREMITITES: 1+ edema. Past Medical History Past Medical History: Dialysis, Hyperlipidemia, Hypertension, Memory Impairment, Renal Disease Additional Past Medical History / Comment(s): bleeding ulcer , ESRD - hemodialysis 3x/wk, pituitary gland tumor - removed 2015, Non hodgkin's lymphoma from [employer] [place] History of Any Multi-Drug Resistant Organisms: C-DIFF Date of last positivie culture/infection: 02/03/25 Additional Past Surgical History / Comment(s): pituitary gland tumor removal 2015, partial Lt. knee replacement, Rt. brachial fistula insertion Past Anesthesia/Blood Transfusion Reactions: No Reported Reaction Past Psychological History: No Psychological Hx Reported Smoking Status: Former smoker Past Alcohol Use History: None Reported Past Drug Use History: None Reported - Past Family History Father Family Medical History: Renal Disease Medications and Allergies Home Medications Medication Instructions Recorded Confirmed Type B Complex W-C No.20/Folic Acid 1 cap PO DAILY 08/05/24 02/08/25 History [Renal Caps Softgel] Cholecalciferol [Vitamin D3 (10 10 mcg PO BID 08/05/24 02/08/25 History Mcg = 400 Iu)] Furosemide [Lasix] 80 mg PO DAILY 08/05/24 02/08/25 History Lovastatin [Mevacor] 20 mg PO HS 08/05/24 02/08/25 History traMADol HCL 100 mg PO BID 08/05/24 02/08/25 History Memantine [Namenda] 5 mg PO BID 12/22/24 02/08/25 History Midodrine HCl 10 mg PO MOWEFR 12/22/24 02/08/25 History Sucroferric Oxyhydroxide [Velphoro] 500 mg PO TID-W/MEALS 12/22/24 02/08/25 History amLODIPine [Norvasc] 10 mg PO DAILY 12/22/24 02/08/25 History carvediloL [Coreg] 3.125 mg PO BID 12/22/24 02/08/25 History Calcium Acetate [PhosLo] 667 mg PO TID-W/MEALS #30 tab 12/28/24 02/08/25 Rx Thiamine HCl [Vitamin B-1] 200 mg PO DAILY 02/04/25 02/08/25 History Vancomycin Oral Solution 500 mg PO DIRECTED 02/08/25 02/08/25 History [Vancomycin HCl Oral Soln] Allergies Allergy/AdvReac Type Severity Reaction Status Date / Time latex Allergy Rash/Hives Verified 02/08/25 20:51 levofloxacin Allergy Rash/Hives Verified 02/08/25 20:51 Sulfa (Sulfonamide Allergy Rash/Hives Verified 02/08/25 20:51 Antibiotics) aspirin AdvReac renal Verified 02/08/25 20:51 failure NSAIDS (Non-Steroidal AdvReac renal Verified 02/08/25 20:51 Anti-Inflamma failure Physical Exam Vitals: Vital Signs Temp Pulse Resp BP Pulse Ox 02/09/25 08:00 79 16 128/75 93 L 02/09/25 06:22 75 20 122/73 95 02/09/25 02:51 97.6 F 70 20 119/69 92 L 02/08/25 21:01 74 18 114/74 93 L 02/08/25 18:00 71 20 115/67 93 L 02/08/25 14:33 97.7 F 71 16 91/53 94 L Results - Lab Results Most recent lab results Calcium 8.0 mg/dL (8.4-10.2) L 02/09/25 09:15 02/09/25 09:15 02/09/25 09:15 Assessment and Plan Plan: Assessment: 1. End-stage renal disease maintained on hemodialysis on Thursday schedule. 2. C. difficile colitis maintained on oral vancomycin. 3. Chronic kidney disease mineral bone disease maintained on phosphate binders. Plan: Hemodialysis tomorrow. Thank you for the consultation. I will continue to follow the patient with you during his hospital stay.
[2025-02-09] MEDS: FUROSEMIDE 40 MG TAB PO SCH (15:05)
--- NOTE | 2025-02-09 16:50 | P.CONS ---
History of Present Illness - Reason for Consult Consult date: 02/09/25 C. difficile colitis - Chief Complaint Diarrhea unable to get medication filled x 1 day - History of Present Illness Patient is a 74-year-old male with a past medical history significant for hypertension, hyperlipidemia, end-stage renal disease on dialysis patient was discharged 02/07/2025 at this facility. He was treated for left foot osteomyelitis, and was receiving cefazolin through the dialysis and Flagyl, he then subsequently presented to hospital with significant diarrhea and has been diagnosed with a C. difficile colitis, was treated with oral vancomycin, and apparently had difficulty filling this prescription and had 4 mostly formed bowel movements yesterday, and had 2 increasingly formed bowel movements today thus far. Today patient is afebrile. No shortness of breath, nausea, vomiting. He is on room air with O2 saturation 93%. WBC today 12.6, creatinine 5.52. Review of Systems Positive point and negatives has been mentioned in the HPI, complete review of systems was performed and all other systems are negative Past Medical History Past Medical History: Dialysis, Hyperlipidemia, Hypertension, Memory Impairment, Renal Disease Additional Past Medical History / Comment(s): bleeding ulcer , ESRD - hemodialysis 3x/wk, pituitary gland tumor - removed 2015, Non hodgkin's lymphoma from [employer] [place] History of Any Multi-Drug Resistant Organisms: C-DIFF Year Discovered:: 02/03/25 Additional Past Surgical History / Comment(s): pituitary gland tumor removal 2015, partial Lt. knee replacement, Rt. brachial fistula insertion Past Anesthesia/Blood Transfusion Reactions: No Reported Reaction Past Psychological History: No Psychological Hx Reported Smoking Status: Former smoker Past Alcohol Use History: None Reported Past Drug Use History: None Reported - Past Family History Father Family Medical History: Renal Disease Medications and Allergies Home Medications Medication Instructions Recorded Confirmed Type B Complex W-C No.20/Folic Acid 1 cap PO DAILY 08/05/24 02/08/25 History [Renal Caps Softgel] Cholecalciferol [Vitamin D3 (10 10 mcg PO BID 08/05/24 02/08/25 History Mcg = 400 Iu)] Furosemide [Lasix] 80 mg PO DAILY 08/05/24 02/08/25 History Lovastatin [Mevacor] 20 mg PO HS 08/05/24 02/08/25 History traMADol HCL 100 mg PO BID 08/05/24 02/08/25 History Memantine [Namenda] 5 mg PO BID 12/22/24 02/08/25 History Midodrine HCl 10 mg PO MOWEFR 12/22/24 02/08/25 History Sucroferric Oxyhydroxide [Velphoro] 500 mg PO TID-W/MEALS 12/22/24 02/08/25 History amLODIPine [Norvasc] 10 mg PO DAILY 12/22/24 02/08/25 History carvediloL [Coreg] 3.125 mg PO BID 12/22/24 02/08/25 History Calcium Acetate [PhosLo] 667 mg PO TID-W/MEALS #30 tab 12/28/24 02/08/25 Rx Thiamine HCl [Vitamin B-1] 200 mg PO DAILY 02/04/25 02/08/25 History Vancomycin Oral Solution 500 mg PO DIRECTED 02/08/25 02/08/25 History [Vancomycin HCl Oral Soln] Allergies Allergy/AdvReac Type Severity Reaction Status Date / Time latex Allergy Rash/Hives Verified 02/08/25 20:51 levofloxacin Allergy Rash/Hives Verified 02/08/25 20:51 Sulfa (Sulfonamide Allergy Rash/Hives Verified 02/08/25 20:51 Antibiotics) aspirin AdvReac renal Verified 02/08/25 20:51 failure NSAIDS (Non-Steroidal AdvReac renal Verified 02/08/25 20:51 Anti-Inflamma failure Physical Exam Vitals: Vital Signs Temp Pulse Resp BP Pulse Ox 02/09/25 08:00 79 16 128/75 93 L 02/09/25 06:22 75 20 122/73 95 02/09/25 02:51 97.6 F 70 20 119/69 92 L 02/08/25 21:01 74 18 114/74 93 L 02/08/25 18:00 71 20 115/67 93 L 02/08/25 14:33 97.7 F 71 16 91/53 94 L GENERAL DESCRIPTION: Elderly male lying in bed, no distress. No tachypnea or accessory muscle of respiration use. HEENT: Shows Pallor , no scleral icterus. Oral mucous membrane is moist. NECK: Trachea central, no thyromegaly. LUNGS: Unlabored breathing. Clear to auscultation anteriorly. No wheeze or crackle. HEART: S1, S2, regular rate and rhythm. No loud murmur ABDOMEN: Soft, no tenderness , guarding or rigidity, no organomegaly EXTREMITIES: Left foot wound on the plantar aspect has decreased in size with no slough tissue or any drainage. 2+ pitting edema SKIN: No rash, no masses palpable. NEUROLOGICAL: The patient is awake, alert, oriented x3, mood and affect normal. Results CBC & Chem 7: 02/10/25 07:10 02/10/25 07:10 Labs: Abnormal Lab Results - Last 24 Hours (Table) 02/08/25 02/08/25 02/09/25 Range/Units 17:06 17:06 09:15 WBC 10.56 H 12.61 H (4.50-10.00) 10*3/uL RBC 4.27 L 4.06 L (4.40-5.60) 10*6/uL Hgb 12.4 L (13.0-17.0) g/dL Hct 39.3 L 38.2 L (39.6-50.0) % RDW 17.3 H (11.5-14.5) % Plt Count 128 L (140-440) 10*3/uL Immature Gran # 0.14 H 0.10 H (0.00-0.04) 10*3/uL Neutrophils # 8.29 H 9.76 H (1.80-7.70) 10*3/uL Lymphocytes # 0.74 L (0.90-5.00) 10*3/uL Monocytes # 1.24 H 1.53 H (0.20-1.00) 10*3/uL Sodium (137-145) mmol/L Chloride 97 L (98-107) mmol/L BUN 40 H (9-20) mg/dL Creatinine 4.74 H (0.66-1.25) mg/dL Calcium 8.2 L (8.4-10.2) mg/dL Alkaline Phosphatase 161 H (38-126) U/L Total Protein 6.0 L (6.3-8.2) g/dL Albumin 3.1 L (3.5-5.0) g/dL 02/09/25 Range/Units 09:15 WBC (4.50-10.00) 10*3/uL RBC (4.40-5.60) 10*6/uL Hgb (13.0-17.0) g/dL Hct (39.6-50.0) % RDW (11.5-14.5) % Plt Count (140-440) 10*3/uL Immature Gran # (0.00-0.04) 10*3/uL Neutrophils # (1.80-7.70) 10*3/uL Lymphocytes # (0.90-5.00) 10*3/uL Monocytes # (0.20-1.00) 10*3/uL Sodium 136 L (137-145) mmol/L Chloride (98-107) mmol/L BUN 49 H (9-20) mg/dL Creatinine 5.52 H (0.66-1.25) mg/dL Calcium 8.0 L (8.4-10.2) mg/dL Alkaline Phosphatase (38-126) U/L Total Protein (6.3-8.2) g/dL Albumin (3.5-5.0) g/dL Assessment and Plan (1) Allergy to multiple antibiotics Current Visit: No Status: Acute Code(s): Z88.1 - ALLERGY STATUS TO OTHER ANTIBIOTIC AGENTS SNOMED Code(s): 154853240 (2) C. difficile diarrhea Current Visit: No Status: Acute Code(s): A04.72 - ENTEROCOLITIS D/T CLOSTRIDIUM DIFFICILE, NOT SPCF RECUR SNOMED Code(s): 8238541399222 (3) Leukocytosis Current Visit: No Status: Acute Code(s): D72.829 - ELEVATED WHITE BLOOD CELL COUNT, UNSPECIFIED SNOMED Code(s): 615508533 (4) Osteomyelitis of left foot Current Visit: No Status: Acute Code(s): M86.9 - OSTEOMYELITIS, UNSPECIFIED SNOMED Code(s): 5754438264605382 Plan: 1patient presented hospital with continuing significant diarrhea, elevated white count and this patient has been diagnosed with C. difficile colitis on previous admission and discharged several days ago. Patient has been exposed to antibiotic for left foot infected callus and concern for underlying osteomyelitis mid December. Culture positive for MSSA and strep. Patient did have overall improvement to the left foot plantar wound and has received adequate IV antibiotic therapy keeping in mind the patient did have active C. difficile colitis, cefazolin was discontinued. 2-patient encouraged to increase his probiotic and yogurt intake. 3-patient seem to have shown overall clinical improvement with less frequent and more formed stool. Will decrease dose of vancomycin to 250 p.o. tablets 4 times daily, which may be continued upon discharge. Dusty Rolle MD Internal Medicine Resident, PGY2 Infectious disease service Patient was personally seen and examined discussed the case with the resident physician agree with the documentation we will treat the patient with oral vancomycin 250 mg p.o. every 6 hours hopefully the [employer] can help in getting his medication arrange for discharge archana tucker MD Dictation was produced using [employer] dictation software. please excuse any gramma tical, word or spelling errors. Time with Patient: Greater than 30
--- NOTE | 2025-02-09 17:19 | P.PN ---
Subjective Progress Note Date: 02/09/25 Principal diagnosis: Patient reports no new symptoms overnight. Feeling well overall. Objective - Vital Signs Vital signs: Vital Signs Temp 97.6 F 02/09/25 02:51 Pulse 79 02/09/25 13:08 Resp 18 02/09/25 13:08 BP 143/84 02/09/25 13:08 Pulse Ox 95 02/09/25 13:08 FiO2 Intake & Output 02/08/25 02/09/25 02/09/25 18:59 06:59 18:59 Weight 94.801 kg - Exam Gen: In NAD, non-toxic HEENT: normocephalic, atraumatic, hearing acuity is intact, mucous membranes moist CVS: 2+ bilateral non-tender pitting edema Respiratory: symmetric chest expansion, no accessory muscle use, GI: soft, no TTP, non-distended : no suprapubic tenderness, no CVA tenderness MSK/Derm: no rashes, cyanosis Neuro: CN II-XII intact, no motor weakness, Psych: cooperative, euthymic mood, judgment and insight is intact - Labs CBC & Chem 7: 02/09/25 09:15 02/09/25 09:15 Labs: Abnormal Lab Results - Last 24 Hours (Table) 02/08/25 02/08/25 02/09/25 Range/Units 17:06 17:06 09:15 WBC 10.56 H 12.61 H (4.50-10.00) 10*3/uL RBC 4.27 L 4.06 L (4.40-5.60) 10*6/uL Hgb 12.4 L (13.0-17.0) g/dL Hct 39.3 L 38.2 L (39.6-50.0) % RDW 17.3 H (11.5-14.5) % Plt Count 128 L (140-440) 10*3/uL Immature Gran # 0.14 H 0.10 H (0.00-0.04) 10*3/uL Neutrophils # 8.29 H 9.76 H (1.80-7.70) 10*3/uL Lymphocytes # 0.74 L (0.90-5.00) 10*3/uL Monocytes # 1.24 H 1.53 H (0.20-1.00) 10*3/uL Sodium (137-145) mmol/L Chloride 97 L (98-107) mmol/L BUN 40 H (9-20) mg/dL Creatinine 4.74 H (0.66-1.25) mg/dL Calcium 8.2 L (8.4-10.2) mg/dL Alkaline Phosphatase 161 H (38-126) U/L Total Protein 6.0 L (6.3-8.2) g/dL Albumin 3.1 L (3.5-5.0) g/dL 02/09/25 Range/Units 09:15 WBC (4.50-10.00) 10*3/uL RBC (4.40-5.60) 10*6/uL Hgb (13.0-17.0) g/dL Hct (39.6-50.0) % RDW (11.5-14.5) % Plt Count (140-440) 10*3/uL Immature Gran # (0.00-0.04) 10*3/uL Neutrophils # (1.80-7.70) 10*3/uL Lymphocytes # (0.90-5.00) 10*3/uL Monocytes # (0.20-1.00) 10*3/uL Sodium 136 L (137-145) mmol/L Chloride (98-107) mmol/L BUN 49 H (9-20) mg/dL Creatinine 5.52 H (0.66-1.25) mg/dL Calcium 8.0 L (8.4-10.2) mg/dL Alkaline Phosphatase (38-126) U/L Total Protein (6.3-8.2) g/dL Albumin (3.5-5.0) g/dL Assessment and Plan Assessment: Data reviewed today: WBC 12.61, hemoglobin 12.4, creatinine 5.52 Assessment/plan: C. difficile colitis Leukocytosis -ID Decreased vancomycin to 250 mg QID -Renal diet -Continue to monitor white count while admitted (10.56 on arrival on 02/08/2025 and 12.61 on 02/09/2025) Chronic Dizziness Generalized weakness # Likely secondary to chronic T2DM -PT/OT consulted Hypertension Hyperlipidemia Type 2 diabetes, not on any meds at home End-stage renal disease Mild cognitive disorder -Restarting carvedilol and lasix -Nephrology consulted. Appreciate recommendations regarding dialysis while inpatient. -Continued on midodrine 10 p.o. 3 times a week - On phosphate binders, atorvastatin - On memantine 5 twice daily Patient is full code DVT prophylaxis with heparin 3 times daily Disposition: Pending clinical course I have seen and evaluated the patient today. Discussed with the resident and agree with the residents finding and plan as documented in the resident's note. Changes highlighted in blue font.
[2025-02-09] MEDS: VANCOMYCIN 125 MG CAPSULE PO SCH (17:40)
[2025-02-09] MEDS: CALCIUM CARBONATE 500 MG CHEWABLE PO PRN (21:44)
[2025-02-10 07:27] LABS: Basophils # (A) 0.07 10*3/uL (0.00-0.10); Basophils % (A) 0.6 %; Eosinophils # (A) 0.15 10*3/uL (0.04-0.35); Eosinophils % (A) 1.2 %; HCT 36.7 % (39.6-50.0); HGB 12.0 g/dL (13.0-17.0); Lymphocytes # (A) 1.24 10*3/uL (0.90-5.00); Lymphocytes % (A) 9.9 %; MCH 30.6 pg (27.0-32.0); MCHC 32.7 g/dL (32.0-37.0); MCV 93.6 fL (80.0-97.0); Monocytes # (A) 1.35 10*3/uL (0.20-1.00); Monocytes % (A) 10.7 %; Neutrophils # (A) 9.65 10*3/uL (1.80-7.70); Neutrophils % (A) 76.8 %; Platelet Count 141 10*3/uL (140-440); RBC 3.92 10*6/uL (4.40-5.60); RDW 17.6 % (11.5-14.5); WBC 12.56 10*3/uL (4.50-10.00)
[2025-02-10 07:53] LABS: African American GFR (CKD) 8 (>60 ml/min/1.73 sqM); Anion Gap 13 mmol/L; Blood Urea Nitrogen 62 mg/dL (9-20); Calcium 7.9 mg/dL (8.4-10.2); Carbon Dioxide 20 mmol/L (22-30); Chloride 103 mmol/L (98-107); Glucose 89 mg/dL (74-99); Non-African American GFR(CKD) 7 (>60 ml/min/1.73 sqM); Sodium 136 mmol/L (137-145)
[2025-02-10 07:55] LABS: Potassium 4.8 mmol/L (3.5-5.1)
--- NOTE | 2025-02-10 10:03 | P.PN ---
Subjective Patient is seen in follow-up for end-stage renal disease. Scheduled for dialysis today. No vomiting or diarrhea. Vital signs are stable. General: No acute distress. HEENT: Head exam is unremarkable. LUNGS: No audible rhonchi or wheezes. HEART: Rate and Rhythm are regular. ABDOMEN: Nontender. EXTREMITITES: No edema. Objective - Vital Signs Vital signs: Vital Signs Temp 98.0 F 02/10/25 07:19 Pulse 72 02/10/25 07:19 Resp 16 02/10/25 07:19 BP 130/73 02/10/25 07:19 Pulse Ox 96 02/10/25 07:19 FiO2 Intake & Output 02/09/25 02/10/25 02/10/25 18:59 06:59 18:59 Weight 94.801 kg Other: Voiding Method Toilet # Voids 1 # Bowel Movements 1 - Labs CBC & Chem 7: 02/10/25 07:10 02/10/25 07:10 Labs: Abnormal Lab Results - Last 24 Hours (Table) 02/09/25 02/10/25 02/10/25 Range/Units 09:15 07:10 07:10 WBC 12.56 H (4.50-10.00) 10*3/uL RBC 3.92 L (4.40-5.60) 10*6/uL Hgb 12.0 L (13.0-17.0) g/dL Hct 36.7 L (39.6-50.0) % RDW 17.6 H (11.5-14.5) % Immature Gran # 0.10 H (0.00-0.04) 10*3/uL Neutrophils # 9.65 H (1.80-7.70) 10*3/uL Monocytes # 1.35 H (0.20-1.00) 10*3/uL Sodium 136 L 136 L (137-145) mmol/L Carbon Dioxide 20 L (22-30) mmol/L BUN 49 H 62 H (9-20) mg/dL Creatinine 5.52 H 6.73 H (0.66-1.25) mg/dL Calcium 8.0 L 7.9 L (8.4-10.2) mg/dL Microbiology - Last 24 Hours (Table) 02/08/25 17:06 Blood Culture - Preliminary Blood Assessment and Plan Plan: Assessment: 1. End-stage renal disease maintained on hemodialysis on Thursday schedule. 2. C. difficile colitis maintained on oral vancomycin. 3. Chronic kidney disease mineral bone disease maintained on phosphate binders. Plan: Hemodialysis today.
--- NOTE | 2025-02-10 15:15 | P.PN ---
Subjective Progress Note Date: 02/10/25 Principal diagnosis: Reason for follow-up is C. difficile colitis Patient is a 74-year-old male with a past medical history significant for hypertension, hyperlipidemia, end-stage renal disease on dialysis with recent admission to the hospital with C. difficile colitis improved subsequent discharged home however the patient was not able to get his medication filled f or the patient came back to the hospital. On today's evaluation that is 02/10/2025, the patient continues to be afebrile, the patient is on room air and breathing comfortably, the Pt denies having any chest pain or cough, the patient denies having any abdominal pain no vomiting and diarrhea has slowed down. Patient white count is 12.56, creatinine 6.73 blood cultures pending Objective - Vital Signs Vital signs: Vital Signs Temp 98 F 02/10/25 14:39 Pulse 68 02/10/25 14:39 Resp 18 02/10/25 14:39 BP 138/77 02/10/25 14:39 Pulse Ox 96 02/10/25 07:19 FiO2 Intake & Output 02/09/25 02/10/25 02/10/25 18:59 06:59 18:59 Intake Total 500 Output Total 2500 Balance -2000 Weight 94.801 kg Intake: Hemodialysis 500 Output: Hemodialysis 1500 Hemodialysis Net Amount 1000 Other: Voiding Method Toilet # Voids 1 # Bowel Movements 1 - Exam GENERAL DESCRIPTION: An elderly male lying in bed in no distress RESPIRATORY SYSTEM: Unlabored breathing , decreased breath sounds at bases HEART: S1 S2 regular rate and rhythm , ABDOMEN: Soft , no tenderness EXTREMITIES: No edema feet - Labs CBC & Chem 7: 02/10/25 07:10 02/10/25 07:10 Labs: Abnormal Lab Results - Last 24 Hours (Table) 02/10/25 02/10/25 Range/Units 07:10 07:10 WBC 12.56 H (4.50-10.00) 10*3/uL RBC 3.92 L (4.40-5.60) 10*6/uL Hgb 12.0 L (13.0-17.0) g/dL Hct 36.7 L (39.6-50.0) % RDW 17.6 H (11.5-14.5) % Immature Gran # 0.10 H (0.00-0.04) 10*3/uL Neutrophils # 9.65 H (1.80-7.70) 10*3/uL Monocytes # 1.35 H (0.20-1.00) 10*3/uL Sodium 136 L (137-145) mmol/L Carbon Dioxide 20 L (22-30) mmol/L BUN 62 H (9-20) mg/dL Creatinine 6.73 H (0.66-1.25) mg/dL Calcium 7.9 L (8.4-10.2) mg/dL Microbiology - Last 24 Hours (Table) 02/08/25 17:06 Blood Culture - Preliminary Blood Assessment and Plan (1) C. difficile diarrhea Current Visit: No Status: Acute Code(s): A04.72 - ENTEROCOLITIS D/T CLOSTRIDIUM DIFFICILE, NOT SPCF RECUR SNOMED Code(s): 1794945436612 (2) Leukocytosis Current Visit: No Status: Acute Code(s): D72.829 - ELEVATED WHITE BLOOD CELL COUNT, UNSPECIFIED SNOMED Code(s): 989879503 Plan: 1patient with recent diagnosis of C. difficile colitis for the patient clinic responded to oral vancomycin presented back to the hospital as he was not able to fill his medication because of cost and nonavailability in the outpatient pharmacy. 2patient had been started on oral vancomycin 250 mg p.o. every 6 hours while case management associate arrange for the outpatient oral antibiotic before discharge encouraged to decrease his probiotic and yogurt intake Dictation was produced using [employer] dictation software. please excuse any grammatical, word or spelling errors. Time with Patient: Less than 30
--- NOTE | 2025-02-10 15:24 | P.PN ---
Subjective Progress Note Date: 02/10/25 Patient did well overnight. Receiving dialysis while I was in the room. No new symptoms or concerns. Reports he is able to walk on his own. Objective - Vital Signs Vital signs: Vital Signs Temp 98 F 02/10/25 14:39 Pulse 68 02/10/25 14:39 Resp 18 02/10/25 14:39 BP 138/77 02/10/25 14:39 Pulse Ox 96 02/10/25 07:19 FiO2 Intake & Output 02/09/25 02/10/25 02/10/25 18:59 06:59 18:59 Intake Total 500 Output Total 2500 Balance -2000 Weight 94.801 kg Intake: Hemodialysis 500 Output: Hemodialysis 1500 Hemodialysis Net Amount 1000 Other: Voiding Method Toilet # Voids 1 # Bowel Movements 1 - Exam Gen: In NAD, non-toxic HEENT: normocephalic, atraumatic, hearing acuity is intact, mucous membranes moist CVS: 2+ bilateral non-tender pitting edema Respiratory: symmetric chest expansion, no accessory muscle use, GI: soft, no TTP, non-distended : no suprapubic tenderness, no CVA tenderness MSK/Derm: no rashes, cyanosis Neuro: CN II-XII intact, no motor weakness, Psych: cooperative, euthymic mood, judgment and insight is intact - Labs CBC & Chem 7: 02/10/25 07:10 02/10/25 07:10 Labs: Abnormal Lab Results - Last 24 Hours (Table) 02/10/25 02/10/25 Range/Units 07:10 07:10 WBC 12.56 H (4.50-10.00) 10*3/uL RBC 3.92 L (4.40-5.60) 10*6/uL Hgb 12.0 L (13.0-17.0) g/dL Hct 36.7 L (39.6-50.0) % RDW 17.6 H (11.5-14.5) % Immature Gran # 0.10 H (0.00-0.04) 10*3/uL Neutrophils # 9.65 H (1.80-7.70) 10*3/uL Monocytes # 1.35 H (0.20-1.00) 10*3/uL Sodium 136 L (137-145) mmol/L Carbon Dioxide 20 L (22-30) mmol/L BUN 62 H (9-20) mg/dL Creatinine 6.73 H (0.66-1.25) mg/dL Calcium 7.9 L (8.4-10.2) mg/dL Microbiology - Last 24 Hours (Table) 02/08/25 17:06 Blood Culture - Preliminary Blood Assessment and Plan Assessment: Data reviewed today: WBC 12.56, hemoglobin 12.0, creatinine 6.73 Assessment/plan: C. difficile colitis Leukocytosis -Continue vancomycin to 250 mg QID -Renal diet -Continue to monitor white count while admitted Chronic Dizziness Generalized weakness # Likely secondary to chronic T2DM -PT/OT consulted -Will assess patient's ability to ambulate independently tomorrow Hypertension Hyperlipidemia Type 2 diabetes, not on any meds at home End-stage renal disease Mild cognitive disorder -Continue carvedilol and lasix -Nephrology consulted. Receiving dialysis today -Continued on midodrine 10 p.o. 3 times a week - On phosphate binders, atorvastatin - On memantine 5 twice daily Patient is full code DVT prophylaxis with heparin 3 times daily Disposition: Pending clinical course I have seen and evaluated the patient today. Discussed with the resident and agree with the residents finding and plan as documented in the resident's note. Changes highlighted in blue font.
[2025-02-11 04:33] LABS: Basophils # (A) 0.08 10*3/uL (0.00-0.10); Basophils % (A) 0.6 %; Eosinophils # (A) 0.13 10*3/uL (0.04-0.35); Eosinophils % (A) 1.0 %; HCT 33.6 % (39.6-50.0); HGB 11.1 g/dL (13.0-17.0); Lymphocytes # (A) 1.32 10*3/uL (0.90-5.00); Lymphocytes % (A) 9.7 %; MCH 31.0 pg (27.0-32.0); MCHC 33.0 g/dL (32.0-37.0); MCV 93.9 fL (80.0-97.0); Monocytes # (A) 1.90 10*3/uL (0.20-1.00); Monocytes % (A) 13.9 %; Neutrophils # (A) 10.10 10*3/uL (1.80-7.70); Neutrophils % (A) 73.9 %; Platelet Count 139 10*3/uL (140-440); RBC 3.58 10*6/uL (4.40-5.60); RDW 17.1 % (11.5-14.5); WBC 13.65 10*3/uL (4.50-10.00)
[2025-02-11 05:00] LABS: African American GFR (CKD) 10 (>60 ml/min/1.73 sqM); Anion Gap 7 mmol/L; Blood Urea Nitrogen 49 mg/dL (9-20); Calcium 7.7 mg/dL (8.4-10.2); Carbon Dioxide 25 mmol/L (22-30); Chloride 101 mmol/L (98-107); Glucose 83 mg/dL (74-99); Non-African American GFR(CKD) 9 (>60 ml/min/1.73 sqM); Potassium 4.3 mmol/L (3.5-5.1); Sodium 133 mmol/L (137-145)
--- NOTE | 2025-02-11 09:54 | P.PN ---
Subjective Patient is seen in follow-up for end-stage renal disease. No problems with dialysis yesterday. No vomiting or diarrhea. Vital signs are stable. General: No acute distress. HEENT: Head exam is unremarkable. LUNGS: No audible rhonchi or wheezes. HEART: Rate and Rhythm are regular. ABDOMEN: Nontender. EXTREMITITES: No edema. Objective - Vital Signs Vital signs: Vital Signs Temp 97.8 F 02/11/25 07:55 Pulse 75 02/11/25 07:55 Resp 19 02/11/25 07:55 BP 117/63 02/11/25 07:55 Pulse Ox 92 L 02/11/25 07:55 FiO2 Intake & Output 02/10/25 02/11/25 02/11/25 18:59 06:59 18:59 Intake Total 500 Output Total 2500 Balance -2000 Intake: Hemodialysis 500 Output: Hemodialysis 1500 Hemodialysis Net Amount 1000 Other: # Voids 3 # Bowel Movements 2 - Labs CBC & Chem 7: 02/11/25 04:15 02/11/25 04:15 Labs: Abnormal Lab Results - Last 24 Hours (Table) 02/11/25 02/11/25 Range/Units 04:15 04:15 WBC 13.65 H (4.50-10.00) 10*3/uL RBC 3.58 L (4.40-5.60) 10*6/uL Hgb 11.1 L (13.0-17.0) g/dL Hct 33.6 L (39.6-50.0) % RDW 17.1 H (11.5-14.5) % Plt Count 139 L (140-440) 10*3/uL Immature Gran # 0.12 H (0.00-0.04) 10*3/uL Neutrophils # 10.10 H (1.80-7.70) 10*3/uL Monocytes # 1.90 H (0.20-1.00) 10*3/uL Sodium 133 L (137-145) mmol/L BUN 49 H (9-20) mg/dL Creatinine 5.64 H (0.66-1.25) mg/dL Calcium 7.7 L (8.4-10.2) mg/dL Microbiology - Last 24 Hours (Table) 02/08/25 17:06 Blood Culture - Preliminary Blood Assessment and Plan Plan: Assessment: 1. End-stage renal disease maintained on hemodialysis on Thursday schedule. 2. C. difficile colitis maintained on oral vancomycin. 3. Chronic kidney disease mineral bone disease maintained on phosphate binders. Plan: Hemodialysis Thursday.
[2025-02-11 10:16] VITALS: BP 117/63; PULSE 75; RESP 19; TEMP 97.8
--- NOTE | 2025-02-11 13:08 | P.DS ---
Providers Date of admission: 02/08/25 17:17 Expected date of discharge: 02/11/25 Attending physician: Sigrid Blakely MD Consults: 02/08/25 17:16 Consult Physician Routine Consulting Provider: Cindy Cespedes Consult Reason/Comments: cdiff Do you want consulting provider notified?: Yes 02/08/25 17:41 Consult Physician Routine Consulting Provider: Marlo Prajapati Consult Reason/Comments: ESRD on HD Do you want consulting provider notified?: Yes [facility] Course: Discharge Diagnosis: C. difficile colitis Leukocytosis Chronic Dizziness Generalized weakness Hypertension Hyperlipidemia Type 2 diabetes, not on any meds at home End-stage renal disease Mild cognitive disorder Hospital Course: The patient is a 74-year-old male with medical history of type 2 diabetes, hypertension, hyperlipidemia, end-stage renal disease on dialysis, who recently was admitted for diarrhea on 02/04/25, found to have Clostridium difficile collitis and discharged on 02/07/25 with a script for oral vancomycin. The patient and his family were unable to get the Rx filled at several pharmacies and had gone without taking vancomycin for approximately 24 hours. The patient fell while getting on a bus to receive dialysis but did not lose consciousness. He has had chronic problems with balance and his family thinks that he may need rehab. The patient denies any new complaints on readmission and reports that he has had diarrhea approximately 5-7 times in the last 24 hours but the stools have been more formed compared to when the diarrhea started days ago. In the ED the patient had similar labs compared to his last admission. He was admitted and restarted on oral vancomycin (6 days remaining). Nephrology and PT/OT were consulted. Patient recieved dialysis while admitted on 02/10/2025. Because the patient was able to ambulate without assistance, and his condition remained stable, the decision was made to discharge the patient on 02/11/2025 with a home PT consult. Discussion with pharmacy confirmed that the new oral vancomycin prescription will be available and affordable. Patient seen and examined at bedside. Amenable to plan for discharge with home PT consult. Vital signs reviewed and stable. Physical examination: Vital signs reviewed General: non toxic, no distress, appears at stated age, normal weight Derm: no unusual rashes/lesions, warm Head: atraumatic, normocephalic, symmetric Eyes: EOMI, anicteric sclera, pupils equal round reactive to light ENT: Nose and ears atraumatic Neck: No cervical lymphadenopathy, trachea midline, supple Mouth: no lip lesion, mucus membranes moist Cardiovascular: S1S2 reg, no murmur, positive dorsalis pedis pulse bilateral, no edema Lungs: CTA bilateral, no rhonchi, no rales, no accessory muscle use Abdominal: soft, nontender to palpation, no guarding Ext: muscle strength 5 out of 5 in all 4 extremities grossly, no gross muscle atrophy Neuro: CN II-XI grossly intact, no gross focal neuro deficits Psych: Alert, oriented to person, place, and time A total of greater than 30 minutes of time were spent preparing this complex discharge summary. Patient was discharged on 02/11/2025 at 1057 Braden Conley MD PGY-1 TY Dictation was produced using Link[employer] dictation software. please excuse any grammatical, word or spelling errors. I have seen and evaluated the patient today. Discussed with the resident and agree with the residents finding and plan as documented in the resident's note. Changes highlighted in blue font. Patient Condition at Discharge: Fair Plan - Discharge Summary New Discharge Prescriptions: New Vancomycin HCl 250 mg PO QID 6 Days #24 cap Continue Furosemide [Lasix] 80 mg PO DAILY Cholecalciferol [Vitamin D3 (10 Mcg = 400 Iu)] 10 mcg PO BID B Complex W-C No.20/Folic Acid [Renal Caps Softgel] 1 cap PO DAILY amLODIPine [Norvasc] 10 mg PO DAILY Midodrine HCl 10 mg PO MOWEFR Sucroferric Oxyhydroxide [Velphoro] 500 mg PO TID-W/MEALS Lovastatin [Mevacor] 20 mg PO HS carvediloL [Coreg] 3.125 mg PO BID Memantine [Namenda] 5 mg PO BID Calcium Acetate [PhosLo] 667 mg PO TID-W/MEALS #30 tab Thiamine HCl [Vitamin B-1] 200 mg PO DAILY Discontinued Vancomycin Oral Solution [Vancomycin HCl Oral Soln] 500 mg PO DIRECTED traMADol HCL 100 mg PO BID Discharge Medication List B Complex W-C No.20/Folic Acid [Renal Caps Softgel] 1 cap PO DAILY 08/05/24 [History] Cholecalciferol [Vitamin D3 (10 Mcg = 400 Iu)] 10 mcg PO BID 08/05/24 [History] Furosemide [Lasix] 80 mg PO DAILY 08/05/24 [History] Lovastatin [Mevacor] 20 mg PO HS 08/05/24 [History] Memantine [Namenda] 5 mg PO BID 12/22/24 [History] Midodrine HCl 10 mg PO MOWEFR 12/22/24 [History] Sucroferric Oxyhydroxide [Velphoro] 500 mg PO TID-W/MEALS 12/22/24 [History] amLODIPine [Norvasc] 10 mg PO DAILY 12/22/24 [History] carvediloL [Coreg] 3.125 mg PO BID 12/22/24 [History] Calcium Acetate [PhosLo] 667 mg PO TID-W/MEALS #30 tab 12/28/24 [Rx] Thiamine HCl [Vitamin B-1] 200 mg PO DAILY 02/04/25 [History] Vancomycin HCl 250 mg PO QID 6 Days #24 cap 02/11/25 [Rx] Follow up Appointment(s)/Referral(s): [facility], [NON-STAFF] - 1-2 Days Keith Kowalski DO [Primary Care Provider] - 1-2 days (Office is closed at time of discharge. Please call for follow-up appointment.) Patient Instructions/Handouts: C. Diff (Clostridioides Difficile) Infection (ED) Discharge Disposition: HOME SELF-CARE
--- NOTE | 2025-02-11 15:51 | P.PN ---
Subjective Progress Note Date: 02/11/25 Principal diagnosis: Reason for follow-up is C. difficile colitis Patient is a 74-year-old male with a past medical history significant for hypertension, hyperlipidemia, end-stage renal disease on dialysis with recent admission to the hospital with C. difficile colitis improved subsequent discharged home however the patient was not able to get his medication filled f or the patient came back to the hospital. On today's evaluation that is 02/12/2024, patient did have a temperature of 98.5 F this morning and denies having any chills, patient is on room air and jen thing comfortably no chest pain or cough, the patient did not have any nausea vomiting abdominal pain still having some diarrhea though decrease in frequency slightly forming up. Patient white count is 13.65 creatinine is 5.64 blood culture negative Objective - Vital Signs Vital signs: Vital Signs Temp 97.8 F 02/11/25 07:55 Pulse 75 02/11/25 07:55 Resp 19 02/11/25 07:55 BP 117/63 02/11/25 07:55 Pulse Ox 92 L 02/11/25 07:55 FiO2 Intake & Output 02/10/25 02/11/25 02/11/25 18:59 06:59 18:59 Intake Total 500 Output Total 2500 Balance -2000 Intake: Hemodialysis 500 Output: Hemodialysis 1500 Hemodialysis Net Amount 1000 Other: # Voids 3 # Bowel Movements 2 - Labs CBC & Chem 7: 02/11/25 04:15 02/11/25 04:15 Labs: Abnormal Lab Results - Last 24 Hours (Table) 02/11/25 02/11/25 Range/Units 04:15 04:15 WBC 13.65 H (4.50-10.00) 10*3/uL RBC 3.58 L (4.40-5.60) 10*6/uL Hgb 11.1 L (13.0-17.0) g/dL Hct 33.6 L (39.6-50.0) % RDW 17.1 H (11.5-14.5) % Plt Count 139 L (140-440) 10*3/uL Immature Gran # 0.12 H (0.00-0.04) 10*3/uL Neutrophils # 10.10 H (1.80-7.70) 10*3/uL Monocytes # 1.90 H (0.20-1.00) 10*3/uL Sodium 133 L (137-145) mmol/L BUN 49 H (9-20) mg/dL Creatinine 5.64 H (0.66-1.25) mg/dL Calcium 7.7 L (8.4-10.2) mg/dL Microbiology - Last 24 Hours (Table) 02/08/25 17:06 Blood Culture - Preliminary Blood Assessment and Plan (1) Allergy to multiple antibiotics Status: Acute Code(s): Z88.1 - ALLERGY STATUS TO OTHER ANTIBIOTIC AGENTS SNO MED Code(s): 443230078 (2) C. difficile diarrhea Status: Acute Code(s): A04.72 - ENTEROCOLITIS D/T CLOSTRIDIUM DIFFICILE, NOT SPCF RECUR SNOMED Code(s): 7569586768353 (3) Leukocytosis Status: Acute Code(s): D72.829 - ELEVATED WHITE BLOOD CELL COUNT, UNSPECIFIED SNOMED Code(s): 380246850 (4) Osteomyelitis of left foot Status: Acute Code(s): M86.9 - OSTEOMYELITIS, UNSPECIFIED SNOMED Code(s): 1 015844908409607 Plan: 1patient presented hospital with continuing significant diarrhea, elevated white count and this patient has been diagnosed with C. difficile colitis on previous admission and discharged several days ago. Patient has been exposed to antibiotic for left foot infected callus and concern for underlying osteomyelitis mid December. Culture positive for MSSA and strep. Patient did have overall improvement to the left foot plantar wound and has received adequate IV antibiotic therapy keeping in mind the patient did have active C. difficile colitis, cefazolin was discontinued. 2-patient encouraged to increase his probiotic and yogurt intake. 3-patient diarrhea seem to be slowing down patient current being treated with oral vancomycin and Questran encouraged to increase her probiotic intake at the bedside multiple question concern answered Dictation was produced using Platter dictation software. please excuse any grammatical, word or spelling errors. I Time with Patient: Less than 30
[2025-02-12] MEDS ORDERED: amLODIPine 10 MG TAB PO SCH (09:00)
== END 2025-02-11 13:37 | disposition home or self-care (01) | DRG 371 ==
LOC: EC 14:28 → 4SSUR 17:17
PROVIDERS: ADMIT Student in an Organized Health Care Education/Training Program; ATTEND Student in an Organized Health Care Education/Training Program
DX: A04.72 Enterocolitis due to Clostridium difficile, not specified as recurrent (principal); N18.6 End stage renal disease; I12.0 Hypertensive chronic kidney disease with stage 5 chronic kidney disease or end stage renal disease; Z99.2 Dependence on renal dialysis; E11.22 Type 2 diabetes mellitus with diabetic chronic kidney disease; M86.8X7 Other osteomyelitis, ankle and foot; E11.69 Type 2 diabetes mellitus with other specified complication; E78.5 Hyperlipidemia, unspecified; M89.8X8 Other specified disorders of bone, other site; G31.84 Mild cognitive impairment of uncertain or unknown etiology; V78.4XXA Person boarding or alighting from bus injured in noncollision transport accident, initial encounter; R53.1 Weakness; R42 Dizziness and giddiness; Z79.899 Other long term (current) drug therapy; Z85.72 Personal history of non-Hodgkin lymphomas; Z87.891 Personal history of nicotine dependence; Z88.1 Allergy status to other antibiotic agents; Z96.653 Presence of artificial knee joint, bilateral; Z88.2 Allergy status to sulfonamides; Z91.040 Latex allergy status; Z88.6 Allergy status to analgesic agent
CPT/HCPCS: 36415; 80048; 80053; 83605; 85025; 87040; 90935; 96360; 96372; 99285

== ENCOUNTER 2025-02-12 22:20 | Emergency (ER) | payer OTHER, MEDICARE ==
--- NOTE | 2025-02-12 23:02 | ED ---
Nausea/Vomiting/Diarrhea HPI - General Chief complaint: Nausea/Vomiting/Diarrhea Stated complaint: Diarrhea Time Seen by Provider: 02/12/25 22:34 Source: patient Mode of arrival: wheelchair Limitations: no limitations - History of Present Illness Initial comments: This patient is a 74-year-old man who presents to have evaluation for diarrhea. The patient states that this has been going on for about 6 weeks. It had really started when he was taking IV antibiotics weeks ago for leg ulcers. The patient states that he had come in the hospital February 08 for the same and was admitted, being diagnosed with C. difficile. The patient went home on the . He was prescribed vancomycin and started that yesterday. The patient returns because he has had over 10 bowel movements between yesterday and today, and had loss of control of bowels with watery diarrhea. The patient has not noted any bloody stools. MD complaint: diarrhea Onset/Timin -: week(s) Description of Diarrhea: water Associated Abdominal Pain: No Consistency: intermittent Improves with: none Worsens with: none - Related Data Home Medications Medication Instructions Recorded Confirmed B Complex W-C No.20/Folic Acid 1 cap PO DAILY 08/05/24 02/08/25 [Renal Caps Softgel] Cholecalciferol [Vitamin D3 (10 10 mcg PO BID 08/05/24 02/08/25 Mcg = 400 Iu)] Furosemide [Lasix] 80 mg PO DAILY 08/05/24 02/08/25 Lovastatin [Mevacor] 20 mg PO HS 08/05/24 02/08/25 Memantine [Namenda] 5 mg PO BID 12/22/24 02/08/25 Midodrine HCl 10 mg PO MOWEFR 12/22/24 02/08/25 Sucroferric Oxyhydroxide [Velphoro] 500 mg PO TID-W/MEALS 12/22/24 02/08/25 amLODIPine [Norvasc] 10 mg PO DAILY 12/22/24 02/08/25 carvediloL [Coreg] 3.125 mg PO BID 12/22/24 02/08/25 Thiamine HCl [Vitamin B-1] 200 mg PO DAILY 02/04/25 02/08/25 Previous Rx's Medication Instructions Recorded Calcium Acetate [PhosLo] 667 mg PO TID-W/MEALS #30 tab 12/28/24 Vancomycin HCl 250 mg PO QID 6 Days #24 cap 02/11/25 Allergies Allergy/AdvReac Type Severity Reaction Status Date / Time latex Allergy Rash/Hives Verified 02/12/25 22:28 levofloxacin Allergy Rash/Hives Verified 02/12/25 22:28 Sulfa (Sulfonamide Allergy Rash/Hives Verified 02/12/25 22:28 Antibiotics) aspirin AdvReac renal Verified 02/12/25 22:28 failure NSAIDS (Non-Steroidal AdvReac renal Verified 02/12/25 22:28 Anti-Inflamma failure Review of Systems ROS Statement: Those systems with pertinent positive or pertinent negative responses have been documented in the HPI. ROS Other: All systems not noted in ROS Statement are negative. Constitutional: Reports: weakness. Denies: fever, chills Respiratory: Reports: dyspnea. Denies: cough Cardiovascular: Reports: edema. Denies: chest pain, palpitations Gastrointestinal: Reports: diarrhea. 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 knee replacement, Rt. brachial fistula insertion Past Anesthesia/Blood Transfusion Reactions: No Reported Reaction Past Psychological History: No Psychological Hx Reported Smoking Status: Former smoker Past Alcohol Use History: None Reported Past Drug Use History: None Reported - Past Family History Father Family Medical History: Renal Disease General Exam Limitations: no limitations General appearance: alert, in no apparent distress Head exam: Present: atraumatic, normocephalic Eye exam: Present: normal appearance. Absent: scleral icterus, conjunctival injection ENT exam: Present: normal oropharynx Neck exam: Present: normal inspection Respiratory exam: Present: normal lung sounds bilaterally. Absent: respiratory distress, wheezes, rales, rhonchi, stridor, accessory muscle use Cardiovascular Exam: Present: regular rate, normal rhythm, normal heart sounds. Absent: systolic murmur, diastolic murmur, rubs, gallop GI/Abdominal exam: Present: soft. Absent: distended, tenderness, guarding, rebound, rigid, mass Extremities exam: Present: other (Venous stasis change with weeping ulcer) Back exam: Present: normal inspection. Absent: CVA tenderness (R), CVA tenderness (L) Neurological exam: Present: alert Skin exam: Present: warm, dry, other (Stasis change and ulcer). Absent: rash Course Vital Signs 02/12/25 02/13/25 02/13/25 22:28 02:40 06:29 Temperature 98.3 F 97.8 F Pulse Rate 76 72 72 Respiratory 16 18 17 Rate Blood Pressure 104/68 114/68 125/75 O2 Sat by Pulse 94 L 95 93 L Oximetry Medical Decision Making - Medical Decision Making Was pt. sent in by a medical professional or institution (Dr. PA, [employer], urgent care, hospital, or shelter...) When possible be specific @ -[No] Did you speak to anyone other than the patient for history (EMS, parent, family, police, friend...)? What history was obtained from this source @ -[No] Did you review nursing and triage notes (agree or disagree)? Why? @ -[I reviewed and agree with nursing and triage notes] Were old charts reviewed (outside hosp., previous admission, EMS record, old EKG, old radiological studies, urgent care reports/EKG's, shelter records)? Report findings @ -[No old charts were reviewed] Differential Diagnosis (chest pain, altered mental status, abdominal pain women, abdominal pain men, vaginal bleeding, weakness, fever, dyspnea, syncope, headache, dizziness, GI bleed, back pain, seizure, CVA, palpatations, mental health, musculoskeletal)? @ -[not applicable] EKG interpreted by me (3pts min.). @ -[As above] X-rays interpreted by me (1pt min.). @ -[None done] CT interpreted by me (1pt min.). @ -[None done] U/S interpreted by me (1pt. min.). @ -[None done] What testing was considered but not performed or refused? (CT, X-rays, U/S, labs)? Why? @ -[None] What meds were considered but not given or refused? Why? @ -[None] Did you discuss the management of the patient with other professionals (professionals i.e. , PA, [employer], lab, RT, psych nurse, manager social work, chief information officer, teacher, mounted police officer, case folder)? Give summary @ -[No] Was smoking cessation discussed for >3mins.? @ -[No] Was critical care preformed (if so, how long)? @ -[No] Were there social determinants of health that impacted care today? How? (Homelessness, low income, unemployed, alcoholism, drug addiction, transportation, low edu. Level, literacy, decrease access to med. care, long term, rehab)? @ -[No] Was there de-escalation of care discussed even if they declined (Discuss DNR or withdrawal of care, Hospice)? DNR status @ -[No] What co-morbidities impacted this encounter? (DM, HTN, Smoking, COPD, CAD, Cancer, CVA, ARF, Chemo, Hep., AIDS, mental health diagnosis, sleep apnea, morbid obesity)? @ -[End-stage renal disease Was patient admitted / discharged? Hospital course, mention meds given and route, prescriptions, significant lab abnormalities, going to OR and other pertinent info. @ -[Patient is a 74-year-old man with end-stage renal disease recently diagnosed with C. difficile colitis. He did start course of medication yesterday. The patient's labs are stable at this point other than elevated creatinine consistent with end-stage renal disease. The patient observed for a number of hours to ensure that there was no bloody stool. The patient to go directly to his dialysis appointment this morning. Patient is somewhat upset t hat he is discharged without antidiarrheal agent, but I explained that the vancomycin will stop the diarrhea but important to not slow elimination of infectious agent. At this point no indication of toxic colon. Undiagnosed new problem with uncertain prognosis? @ -[No] Drug Therapy requiring intensive monitoring for toxicity (Heparin, Nitro, Insulin, Cardizem)? @ -[No] Were any procedures done? @ -[No] Diagnosis/symptom? @ -[C. difficile colitis Diarrhea due to above Acute, or Chronic, or Acute on Chronic? @ -[Acute Uncomplicated (without systemic symptoms) or Complicated (systemic symptoms)? @ -[Uncomplicated Side effects of treatment? @ -[No] Exacerbation, Progression, or Severe Exacerbation? @ -[No] Poses a threat to life or bodily function? How? (Chest pain, [place], HI, pneumonia, PE, COPD, DKA, ARF, appy, cholecystitis, CVA, Diverticulitis, Homicidal, Suicidal, threat to staff... and all critical care pts) @ -[No] All treatments are based on ideal body weight as in ED triage - Lab Data Result diagrams: 02/12/25 23:06 02/12/25 23:06 Lab Results 02/12/25 02/12/25 02/12/25 Range/Units 23:06 23:06 23:06 WBC 17.16 H (4.50-10.00) 10*3/uL RBC 3.68 L (4.40-5.60) 10*6/uL Hgb 11.6 L (13.0-17.0) g/dL Hct 34.1 L (39.6-50.0) % MCV 92.7 (80.0-97.0) fL MCH 31.5 (27.0-32.0) pg MCHC 34.0 (32.0-37.0) g/dL Plt Count 195 (140-440) 10*3/uL MPV 11.1 (9.5-12.2) fL Immature Gran % (Auto) 0.6 % Neutrophils % 82.1 % Lymphocytes % 7.2 % Monocytes % 9.4 % Eosinophils % 0.2 % Basophils % 0.5 % Immature Gran # 0.11 H (0.00-0.04) 10*3/uL Neutrophils # 14.08 H (1.80-7.70) 10*3/uL Lymphocytes # 1.24 (0.90-5.00) 10*3/uL Monocytes # 1.62 H (0.20-1.00) 10*3/uL Eosinophils # 0.03 L (0.04-0.35) 10*3/uL Basophils # 0.08 (0.00-0.10) 10*3/uL Sodium 136 L (137-145) mmol/L Potassium 4.7 (3.5-5.1) mmol/L Chloride 102 (98-107) mmol/L Carbon Dioxide 23 (22-30) mmol/L Anion Gap 11 mmol/L BUN 74 H (9-20) mg/dL Creatinine 8.67 H* (0.66-1.25) mg/dL Est GFR (CKD-EPI)AfAm 6 (>60 ml/min/1.73 sqM) Est GFR (CKD-EPI)NonAf 5 (>60 ml/min/1.73 sqM) Glucose 95 (74-99) mg/dL Plasma Lactic Acid Sami 1.1 (0.7-2.0) mmol/L Calcium 7.8 L (8.4-10.2) mg/dL Magnesium 1.9 (1.6-2.3) mg/dL Total Bilirubin 0.7 (0.2-1.3) mg/dL AST 33 (17-59) U/L ALT <6 (4-49) U/L Alkaline Phosphatase 114 (38-126) U/L Total Protein 5.1 L (6.3-8.2) g/dL Albumin 2.6 L (3.5-5.0) g/dL Disposition Clinical Impression: C. difficile diarrhea, Dehydration Disposition: HOME SELF-CARE Condition: Fair Instructions (If sedation given, give patient instructions): Acute Diarrhea (ED) Is patient prescribed a controlled substance at d/c from ED?: No Referrals: Keith Kowalski DO [Primary Care Provider] - 1-2 days
[2025-02-12 23:35] LABS: Basophils # (A) 0.08 10*3/uL (0.00-0.10); Basophils % (A) 0.5 %; Eosinophils # (A) 0.03 10*3/uL (0.04-0.35); Eosinophils % (A) 0.2 %; HCT 34.1 % (39.6-50.0); HGB 11.6 g/dL (13.0-17.0); Lymphocytes # (A) 1.24 10*3/uL (0.90-5.00); Lymphocytes % (A) 7.2 %; MCH 31.5 pg (27.0-32.0); MCHC 34.0 g/dL (32.0-37.0); MCV 92.7 fL (80.0-97.0); Monocytes # (A) 1.62 10*3/uL (0.20-1.00); Monocytes % (A) 9.4 %; Neutrophils # (A) 14.08 10*3/uL (1.80-7.70); Neutrophils % (A) 82.1 %; Platelet Count 195 10*3/uL (140-440); RBC 3.68 10*6/uL (4.40-5.60); RDW 17.0 % (11.5-14.5); WBC 17.16 10*3/uL (4.50-10.00)
[2025-02-12 23:55] LABS: ALT <6 U/L (4-49); AST 33 U/L (17-59); African American GFR (CKD) 6 (>60 ml/min/1.73 sqM); Albumin 2.6 g/dL (3.5-5.0); Alkaline Phosphatase 114 U/L (38-126); Blood Urea Nitrogen 74 mg/dL (9-20); Calcium 7.8 mg/dL (8.4-10.2); Carbon Dioxide 23 mmol/L (22-30); Glucose 95 mg/dL (74-99); Magnesium 1.9 mg/dL (1.6-2.3); Non-African American GFR(CKD) 5 (>60 ml/min/1.73 sqM); Total Protein 5.1 g/dL (6.3-8.2)
[2025-02-13 00:35] LABS: Anion Gap 11 mmol/L; Chloride 102 mmol/L (98-107); Potassium 4.7 mmol/L (3.5-5.1); Sodium 136 mmol/L (137-145)
[2025-02-13 02:40] VITALS: PULSE 72
[2025-02-13 06:31] VITALS: BP 125/75; RESP 17; TEMP 97.8
== END 2025-02-13 06:31 | disposition home or self-care (01) ==
LOC: EC 22:20
DX: E86.0 Dehydration (principal); A04.72 Enterocolitis due to Clostridium difficile, not specified as recurrent; I12.0 Hypertensive chronic kidney disease with stage 5 chronic kidney disease or end stage renal disease; N18.6 End stage renal disease; Z87.891 Personal history of nicotine dependence; Z88.2 Allergy status to sulfonamides; Z91.040 Latex allergy status; Z88.6 Allergy status to analgesic agent; Z88.1 Allergy status to other antibiotic agents
CPT/HCPCS: 36415; 80053; 83605; 83735; 85025; 99284